=== PATIENT | male | born 1955 | race Caucasian/White ===

== ENCOUNTER → 2016-05-26 | Outpatient (CLI) | payer BC ==
--- NOTE | 2016-05-26 15:50 | NM ---
EXAMINATION: NM left ventriculography HISTORY: Cardiomyopathy COMPARISON: None TECHNIQUE: Images were obtained in the MOLDOVAN position following the administration of 21.8 mCi of Tech 99M labeled UltraTag. FINDINGS: There is good left and right ventricular contraction noted. Ejection fraction of the left ventricle measures 40%. IMPRESSION: Left ventricular ejection fraction of 40%.
== END | disposition home or self-care (01) ==
LOC: MW.NM 09:42
PROVIDERS: ATTEND Internal Medicine Cardiovascular Disease
DX: I42.9 Cardiomyopathy, unspecified (principal)
CPT/HCPCS: 78472; A9508

== ENCOUNTER → 2016-05-27 | Outpatient (CLI) | payer BC ==
[~2016-05-27] MED LIST: Gadobutrol 7.5 mMOL/7.5 ML SDV IVPUSH STA
--- NOTE | 2016-05-28 10:07 | MR ---
EXAMINATION: MRI of the brain with and without contrast. TECHNIQUE: Multiplanar and multisequence imaging of the brain without and following the administrati on of 7.5 mL of Gadavist. HISTORY: Hemorrhage. FINDINGS: Cerebral hemispheres and the deep nuclei are without hemorrhage, mass, or edema. 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 There is no abnormal diffusion restriction. No extraaxial collections or hemorrhage. Ventricular system is of normal size and configuration with out hydrocephalus. Brainstem and cerebellum are without hemorrhage, mass, edema, gliosis, enhanceme nt or atrophy. Carotid basilar artery flow voids are intact. The otomastoid airspaces are clear. No internal chuckie tory canal or cerebellopontine angle masses or enhancement. There is mucosal thickening within the Maxillary and sphenoid sinuses. There is opacification of several ethmoid air cells. Globes, optic nerves, orbital apices, optic chiasm, optic tracts, and visual cortices are unremarka ble. The pituitary and sella turcica are unremarkable. No meningeal enhancement. The craniocervical junction is unremarkable. No siderosis or evidence of vascular malformation. The calvarium is intact. IMPRESSION: 1. Developing encephalomalacia within the left occipital lobe from the previously described infarct. 2. No acute intracranial abnormalities identified. 3. Mild paranasal sinus disease.
== END ==
LOC: MW.MRI 15:39
PROVIDERS: ATTEND Psychiatry & Neurology Neuromuscular Medicine
DX: I61.9 Nontraumatic intracerebral hemorrhage, unspecified (principal); G93.89 Other specified disorders of brain; J34.9 Unspecified disorder of nose and nasal sinuses
CPT/HCPCS: 70553; A9585

== ENCOUNTER 2018-09-13 14:11 | Emergency (ER) | payer BC, MEDICARE ==
[2018-09-13] MEDS ORDERED: Sodium Chloride 0.9% 1,000 ML IV ONE (14:29)
[2018-09-13] MEDS ORDERED: Pantoprazole 40 MG Vial IVPUSH ONE (14:39)
[2018-09-13] MEDS ORDERED: Sodium Chloride 0.9% 1,000 ML IV SCH (14:45)
[2018-09-13] MEDS ORDERED: Sodium Chloride 0.9% 10 ML SDV IV ONE (14:45)
[2018-09-13 15:13] LABS: CARBON DIOXIDE,CO2 26.7 mmol/L (21.0-32.0); CHLORIDE,CL 103 mmol/L (98-107); GLUCOSE RANDOM 172 mg/dL (74-106); POTASSIUM,K 4.4 mmol/L (3.5-5.1); SODIUM,NA 134 mmol/L (136-148)
[2018-09-13 15:14] LABS: BLOOD UREA NITROGEN,BUN 36 mg/dL (7.0-18.0)
--- NOTE | 2018-09-13 15:24 | EDM.PDOC ---
ED HPI GENERAL MEDICAL PROBLEM - General Chief Complaint: Cardiovascular Problem Stated Complaint: POSS HEART ATTACK Time Seen by Provider: 09/13/18 15:22 Source of Information: Reports: Patient - History of Present Illness INITIAL COMMENTS - FREE TEXT/NARRATIVE: HISTORY AND PHYSICAL: History of present illness: [ Patient presents with history of chronic alcoholism and hypotension hemoglobin is 9.0 otherwise no acute distress he does state he of dark stools no fever nausea vomiting chills sweats no chest pain shortness breath headache dizziness palpitation no urine symptoms] Review of systems: As per history of present illness and below otherwise all systems reviewed and negative. Past medical history: As per history of present illness and as reviewed below otherwise noncontributory. Surgical history: As per history of present illness and as reviewed below otherwise noncontributory. Social history: No reported history of drug or alcohol abuse. Family history: As per history of present illness and as reviewed below otherwise noncontributory. Physical exam: HEENT: Atraumatic, normocephalic, pupils reactive, negative for conjunctival pallor or scleral icterus, mucous membranes moist, throat clear, neck supple, nontender, trachea midline. Lungs: Clear to auscultation, breath sounds equal bilaterally, chest nontender. Heart: S1S2, regular, negative for clicks, rubs, or JVD. Abdomen: Soft, nondistended, nontender. Negative for masses or hepatosplenomegaly. Negative for costovertebral tenderness. Pelvis: Stable nontender. Genitourinary: Deferred. Rectal: Deferred. Extremities: Atraumatic, negative for cords or calf pain. Neurovascular unremarkable. Neuro: Awake, alert, oriented. Cranial nerves II through XII unremarkable. Cerebellum unremarkable. Motor and sensory unremarkable throughout. Exam nonfocal. Diagnostics: [TBC CMP UA troponin guaiac EKG Chest 1 view] Therapeutics: [Way Proton X] Impression: [Hypotension Anemia Chronic history of baseline] Definitive disposition and diagnosis as appropriate pending reevaluation and review of above. Treatments SERVICE ORDER DISPATCHER: Reports: IV/IO, Oxygen, Other (see below) Other Treatments SERVICE ORDER DISPATCHER: IVF - Related Data Allergies Allergy/AdvReac Type Severity Reaction Status Date / Time codeine Allergy Swelling Verified 09/13/18 14:27 Penicillins Allergy Anaphylactic Verified 07/06/15 20:27 Shock Home Meds: Home Meds Clopidogrel [Plavix] 1 tab PO DAILY 07/06/15 [History] Lisinopril [Zestril] 1 tab PO DAILY 07/06/15 [History] amLODIPine [Norvasc] 5 mg PO DAILY 07/06/15 [History] Carvedilol 3.125 mg PO DAILY 09/13/18 [History] Multivitamin [Daily Multiple Vitamin] 1 each PO DAILY 09/13/18 [History] Nitroglycerin 0.4 mg SL ASDIRECTED 09/13/18 [History] atorvaSTATin Calcium [Atorvastatin Calcium] 40 mg PO DAILY 09/13/18 [History] Past Medical History HEENT History: Reports: None Cardiovascular History: Reports: High Cholesterol, Hypertension Other Cardiovascular History: femoral bypass surgery 5 years ago. heart blockage Respiratory History: Reports: COPD Gastrointestinal History: Reports: None Genitourinary History: Reports: None Musculoskeletal History: Reports: None Neurological History: Reports: None Psychiatric History: Reports: None Endocrine/Metabolic History: Reports: None Hematologic History: Reports: None Immunologic History: Reports: None Dermatologic History: Reports: None - Infectious Disease History Infectious Disease History: Reports: Measles, Mumps - Past Surgical History Head Surgeries/Procedures: Reports: None GI Surgical History: Reports: Other (See Below) Social & Family History - Family History Family Medical History: Unobtainable - Tobacco Use Smoking Status *Q: Current Every Day Smoker Years of Tobacco use: 45 Packs/Tins Daily: 2 - Recreational Drug Use Recreational Drug Use: Yes Drug Use in Last 12 Months: Yes Recreational Drug Type: Reports: Marijuana/Hashish Recreational Drug Use Frequency: Daily ED ROS GENERAL - Review of Systems Review Of Systems: See Below ED EXAM, GENERAL - Physical Exam Exam: See Below Course - Vital Signs Last Recorded V/S: Last Vital Signs Temp 96.0 F 09/13/18 14:22 Pulse 87 09/13/18 15:07 Resp 18 09/13/18 15:07 BP 101/57 L 09/13/18 15:07 Pulse Ox 96 09/13/18 15:07 - Orders/Labs/Meds Orders: Active Orders 24 hr Category Date Time Status EKG Documentation Completion [RC] AM Care 09/13/18 14:30 Active Chest 1V Frontal [CR] Stat Exams 09/13/18 14:30 Ordered CULTURE BLOOD [BC] Stat Lab 09/13/18 14:36 Received CULTURE BLOOD [BC] Stat Lab 09/13/18 14:54 Received ETHANOL BLOOD MEDICAL [CHEM] Stat Lab 09/13/18 14:28 Received Guaiac [OCCULT BLOOD DIAGNOSTIC] [OP] Stat Lab 09/13/18 15:13 Ordered TYPE AND SCREEN [BBK] Stat Lab 09/13/18 14:39 Ordered Sodium Chloride 0.9% [Normal Saline] 1,000 ml Med 09/13/18 14:29 Active IV STAT Sodium Chloride 0.9% [Normal Saline] 1,000 ml Med 09/13/18 14:45 Active IV STAT Blood Culture x2 Reflex Set [OM.PC] Stat Oth 09/13/18 14:30 Ordered Medication Orders Sodium Chloride (Normal Saline) 1,000 mls @ 999 mls/hr IV STAT ONE Stop: 09/13/18 15:29 Last Admin: 09/13/18 14:37 Dose: 999 mls/hr Sodium Chloride (Normal Saline) 1,000 mls @ 125 mls/hr IV STAT ANGIE Last Admin: 09/13/18 14:52 Dose: 125 mls/hr Labs: Laboratory Tests 09/13/18 09/13/18 09/13/18 Range/Units 14:28 14:28 14:28 WBC 11.30 H (4.0-11.0) K/uL RBC 2.80 L (4.50-5.90) M/uL Hgb 9.1 L (13.0-17.0) g/dL Hct 25.9 L (38.0-50.0) % MCV 92.5 (80.0-98.0) fL MCH 32.5 H (27.0-32.0) pg MCHC 35.1 (31.0-37.0) g/dL RDW Std Deviation 45.0 (28.0-62.0) fl RDW Coeff of Zhen 13 (11.0-15.0) % Plt Count 209 (150-400) K/uL MPV 10.60 (7.40-12.00) fL Neut % (Auto) 68.8 (48.0-80.0) % Lymph % (Auto) 22.5 (16.0-40.0) % Mckenzie % (Auto) 6.8 (0.0-15.0) % Eos % (Auto) 1.2 (0.0-7.0) % Baso % (Auto) 0.7 (0.0-1.5) % Neut # (Auto) 7.8 H (1.4-5.7) K/uL Lymph # (Auto) 2.5 H (0.6-2.4) K/uL Mckenzie # (Auto) 0.8 (0.0-0.8) K/uL Eos # (Auto) 0.1 (0.0-0.7) K/uL Baso # (Auto) 0.1 (0.0-0.1) K/uL Nucleated RBC % 0.0 /100WBC Nucleated RBCs # 0 K/uL INR 1.02 Sodium 134 L (136-148) mmol/L Potassium 4.4 (3.5-5.1) mmol/L Chloride 103 (98-107) mmol/L Carbon Dioxide 26.7 (21.0-32.0) mmol/L BUN 36 H (7.0-18.0) mg/dL Creatinine 1.4 H (0.8-1.3) mg/dL Est Cr Clr Drug Dosing 47.88 mL/min Estimated GFR (MDRD) 51.0 ml/min Glucose 172 H (74-106) mg/dL Calcium 9.9 (8.5-10.1) mg/dL Total Bilirubin 0.5 (0.2-1.0) mg/dL AST 18 (15-37) IU/L ALT 28 (14-63) IU/L Alkaline Phosphatase 70 (46-116) U/L Creatine Kinase 21 L (26-308) U/L Troponin I < 0.050 (0.000-0.056) ng/mL Total Protein 5.7 L (6.4-8.2) g/dL Albumin 3.1 L (3.4-5.0) g/dL Globulin 2.6 (2.6-4.0) g/dL Albumin/Globulin Ratio 1.2 (0.9-1.6) Meds: Medications Generic Name Dose Route Start Last Admin Trade Name Freq PRN Reason Stop Dose Admin Sodium Chloride 1,000 mls @ 999 mls/hr 09/13/18 14:29 09/13/18 14:37 Normal Saline IV 09/13/18 15:29 999 mls/hr STAT ONE Administration Sodium Chloride 1,000 mls @ 125 mls/hr 09/13/18 14:45 09/13/18 14:52 Normal Saline IV 125 mls/hr STAT ANGIE Administration Discontinued Medications Generic Name Dose Route Start Last Admin Trade Name Kashmirq PRN Reason Stop Dose Admin Pantoprazole Sodium 80 mg 09/13/18 14:39 09/13/18 14:52 Protonix Iv IVPUSH 09/13/18 14:40 80 mg .BOLUS ONE Administration Sodium Chloride 20 ml 09/13/18 14:45 09/13/18 14:52 Normal Saline IV 09/13/18 14:46 20 ml ONETIME ONE Administration Departure - Departure Time of Disposition: 15:23 Disposition: Refer to Observation Condition: Poor Clinical Impression: Hypotension, Anemia Referrals: Nilton David MD [Primary Care Provider] - - My Orders Last 24 Hours: My Active Orders 09/13/18 14:28 ETHANOL BLOOD MEDICAL [CHEM] Stat 09/13/18 14:29 Sodium Chloride 0.9% [Normal Saline] 1,000 ml IV STAT 09/13/18 14:30 EKG Documentation Completion [RC] AM Chest 1V Frontal [CR] Stat Blood Culture x2 Reflex Set [OM.PC] Stat 09/13/18 14:36 CULTURE BLOOD [BC] Stat 09/13/18 14:39 TYPE AND SCREEN [BBK] Stat 09/13/18 14:45 Sodium Chloride 0.9% [Normal Saline] 1,000 ml IV STAT 09/13/18 14:54 CULTURE BLOOD [BC] Stat 09/13/18 15:13 Guaiac [OCCULT BLOOD DIAGNOSTIC] [OP] Stat - Assessment/Plan Last 24 Hours: My Active Orders 09/13/18 14:28 ETHANOL BLOOD MEDICAL [CHEM] Stat 09/13/18 14:29 Sodium Chloride 0.9% [Normal Saline] 1,000 ml IV STAT 09/13/18 14:30 EKG Documentation Completion [RC] AM Chest 1V Frontal [CR] Stat Blood Culture x2 Reflex Set [OM.PC] Stat 09/13/18 14:36 CULTURE BLOOD [BC] Stat 09/13/18 14:39 TYPE AND SCREEN [BBK] Stat 09/13/18 14:45 Sodium Chloride 0.9% [Normal Saline] 1,000 ml IV STAT 09/13/18 14:54 CULTURE BLOOD [BC] Stat 09/13/18 15:13 Guaiac [OCCULT BLOOD DIAGNOSTIC] [OP] Stat
--- NOTE | 2018-09-13 16:06 | CR ---
INDICATION: Shortness of breath COMPARISON: 06/25/2017 FINDINGS: An AP portable erect film of the chest is obtained at 1535 hours. The rounded density in the left superior perihilar lung has resolved, leaving a cavitary region, consistent with resolution of an infected bulla. Again seen is a calcified granuloma in the left mid-upper lateral lung. The rest of the chest remains clear. The heart remains normal in size. The mediastinum is normal in appearance. The osseous structures are normal in appearance for the patient`s age. IMPRESSION: No active disease seen in the chest. Resolution of previously seen probable infected bulla in the left superior perihilar lung. Dictated by Sebastián Grove MD @ Sep 13 2018 4:02PM Signed by Dr. Sebastián Grove @ Sep 13 2018 4:05PM
[2018-09-13 16:25] VITALS: BP 106/60; PULSE 75
--- NOTE | 2018-09-13 16:41 | PCM.HP ---
<Francoise Borden M - Last Filed: 09/13/18 16:36> H&P History of Present Illness - General Date of Service: 09/13/18 Admit Problem/Dx: Admission Diagnosis/Problem Admission Diagnosis/Problem Anemia Source of Information: Patient, Family - History of Present Illness Initial Comments - Free Text/Narative: This 63 year old male with pmh of fem fem bypass bilaterally, CVA, alcohol use, and tobacco use presented to the ED via EMS with complaints of extreme dizziness and near syncope this morning. he reports these symptoms have been occurring over the last 3 days but worsening today significantly. Along with this he reports coffee ground emesis yesterday along with three days of black tarry stools, with the last stool being just before coming to the ED today. He reports he is taking ASA and Plavix for his arterial disease. He drinks a 12 pack every couple days, his last drink was last Wednesday. Denies withdrawal symptoms. In ED leukocytosis noted 11,300, hgb 9.1 INR 1.02. BUN 36, Cr 1.4 trop negative ETOH negative. He was given Protonix and NS bolus. BPs have have 80/50s. Rectal exam done per tn, black tarry stool noted around anal opening, no mariluz blood. Hemoccult positive. - Related Data Allergies/Adverse Reactions: Allergies Allergy/AdvReac Type Severity Reaction Status Date / Time codeine Allergy Swelling Verified 09/13/18 14:27 Penicillins Allergy Anaphylactic Verified 07/06/15 20:27 Shock Home Medications: Home Meds Clopidogrel [Plavix] 1 tab PO DAILY 07/06/15 [History] Lisinopril [Zestril] 1 tab PO DAILY 07/06/15 [History] amLODIPine [Norvasc] 5 mg PO DAILY 07/06/15 [History] Carvedilol 3.125 mg PO DAILY 09/13/18 [History] Multivitamin [Daily Multiple Vitamin] 1 each PO DAILY 09/13/18 [History] Nitroglycerin 0.4 mg SL ASDIRECTED 09/13/18 [History] atorvaSTATin Calcium [Atorvastatin Calcium] 40 mg PO DAILY 09/13/18 [History] Past Medical History HEENT History: Reports: None Cardiovascular History: Reports: High Cholesterol, Hypertension Other Cardiovascular History: femoral bypass surgery 5 years ago. heart blockage Respiratory History: Reports: COPD Gastrointestinal History: Reports: None. Denies: GERD, GI Bleed Genitourinary History: Reports: None Musculoskeletal History: Reports: None Neurological History: Reports: None Psychiatric History: Reports: None Endocrine/Metabolic History: Reports: None Hematologic History: Reports: None Immunologic History: Reports: None Dermatologic History: Reports: None - Infectious Disease History Infectious Disease History: Reports: Measles, Mumps - Past Surgical History Head Surgeries/Procedures: Reports: None GI Surgical History: Reports: Other (See Below) Social & Family History - Family History Family Medical History: Unobtainable - Tobacco Use Smoking Status *Q: Current Every Day Smoker Years of Tobacco use: 45 Packs/Tins Daily: 2 - Alcohol Use Alcohol Use History: Yes Alcohol Use Frequency: Weekly - Recreational Drug Use Recreational Drug Use: Yes Drug Use in Last 12 Months: Yes Recreational Drug Type: Reports: Marijuana/Hashish Recreational Drug Use Frequency: Daily H&P Review of Systems - Review of Systems: Review Of Systems: See Below HEENT: Reports: Vertigo Pulmonary: Reports: Shortness of Breath (at baseline) Cardiovascular: Reports: Lightheadedness, Syncope (near syncopal). Denies: Chest Pain, Edema Gastrointestinal: Reports: Black Stool, Vomiting, Other (coffee ground emesis) Genitourinary: Reports: No Symptoms. Denies: Dysuria, Frequency, Burning Musculoskeletal: Reports: No Symptoms Skin: Reports: No Symptoms Psychiatric: Reports: No Symptoms Neurological: Reports: No Symptoms Hematologic/Lymphatic: Reports: No Symptoms Immunologic: Reports: No Symptoms Exam - Exam Exam: See Below - Vital Signs Vital Signs: Last Vital Signs Temp 96.0 F 09/13/18 14:22 Pulse 75 09/13/18 16:24 Resp 16 09/13/18 15:29 BP 106/60 09/13/18 16:24 Pulse Ox 99 09/13/18 16:24 Weight: 63.503 kg - Exam General: Alert, Oriented, Cooperative, Other (diaphoretic and pale in appearance ) HEENT: No: Mucosa Moist & Bennett (pale mucous membranes) Neck: Supple Lungs: Clear to Auscultation, Normal Respiratory Effort Cardiovascular: Regular Rate, Regular Rhythm. No: Systolic Murmur GI/Abdominal Exam: Normal Bowel Sounds, Soft, Non-Tender Rectal (Males) Exam: Normal Rectal Tone, Black Stool, Heme + Stool, Hemorrhoids (non bleeding). No: Mass, Tenderness Extremities: Normal Inspection, Normal Range of Motion, Non-Tender, No Pedal Edema Neuro Extensive - Mental Status: Alert, Oriented x3 Neuro Extensive - Motor, Sensory, Reflexes: CN II-XII Intact Psychiatric: Alert, Normal Affect, Normal Mood - Patient Data Lab Results Last 24 hrs: Laboratory Results - last 24 hr 09/13/18 09/13/18 09/13/18 Range/Units 14:28 14:28 14:28 WBC 11.30 H (4.0-11.0) K/uL RBC 2.80 L (4.50-5.90) M/uL Hgb 9.1 L (13.0-17.0) g/dL Hct 25.9 L (38.0-50.0) % MCV 92.5 (80.0-98.0) fL MCH 32.5 H (27.0-32.0) pg MCHC 35.1 (31.0-37.0) g/dL RDW Std Deviation 45.0 (28.0-62.0) fl RDW Coeff of Zhen 13 (11.0-15.0) % Plt Count 209 (150-400) K/uL MPV 10.60 (7.40-12.00) fL Neut % (Auto) 68.8 (48.0-80.0) % Lymph % (Auto) 22.5 (16.0-40.0) % Tripp % (Auto) 6.8 (0.0-15.0) % Eos % (Auto) 1.2 (0.0-7.0) % Baso % (Auto) 0.7 (0.0-1.5) % Neut # (Auto) 7.8 H (1.4-5.7) K/uL Lymph # (Auto) 2.5 H (0.6-2.4) K/uL Tripp # (Auto) 0.8 (0.0-0.8) K/uL Eos # (Auto) 0.1 (0.0-0.7) K/uL Baso # (Auto) 0.1 (0.0-0.1) K/uL Nucleated RBC % 0.0 /100WBC Nucleated RBCs # 0 K/uL INR 1.02 Sodium 134 L (136-148) mmol/L Potassium 4.4 (3.5-5.1) mmol/L Chloride 103 (98-107) mmol/L Carbon Dioxide 26.7 (21.0-32.0) mmol/L BUN 36 H (7.0-18.0) mg/dL Creatinine 1.4 H (0.8-1.3) mg/dL Est Cr Clr Drug Dosing 47.88 mL/min Estimated GFR (MDRD) 51.0 ml/min Glucose 172 H (74-106) mg/dL Calcium 9.9 (8.5-10.1) mg/dL Total Bilirubin 0.5 (0.2-1.0) mg/dL AST 18 (15-37) IU/L ALT 28 (14-63) IU/L Alkaline Phosphatase 70 (46-116) U/L Creatine Kinase 21 L (26-308) U/L Troponin I < 0.050 (0.000-0.056) ng/mL Total Protein 5.7 L (6.4-8.2) g/dL Albumin 3.1 L (3.4-5.0) g/dL Globulin 2.6 (2.6-4.0) g/dL Albumin/Globulin Ratio 1.2 (0.9-1.6) Ethyl Alcohol mg/dL Blood Type Antibody Screen Crossmatch 09/13/18 09/13/18 Range/Units 14:28 15:20 WBC (4.0-11.0) K/uL RBC (4.50-5.90) M/uL Hgb (13.0-17.0) g/dL Hct (38.0-50.0) % MCV (80.0-98.0) fL MCH (27.0-32.0) pg MCHC (31.0-37.0) g/dL RDW Std Deviation (28.0-62.0) fl RDW Coeff of Zhen (11.0-15.0) % Plt Count (150-400) K/uL MPV (7.40-12.00) fL Neut % (Auto) (48.0-80.0) % Lymph % (Auto) (16.0-40.0) % Tripp % (Auto) (0.0-15.0) % Eos % (Auto) (0.0-7.0) % Baso % (Auto) (0.0-1.5) % Neut # (Auto) (1.4-5.7) K/uL Lymph # (Auto) (0.6-2.4) K/uL Tripp # (Auto) (0.0-0.8) K/uL Eos # (Auto) (0.0-0.7) K/uL Baso # (Auto) (0.0-0.1) K/uL Nucleated RBC % /100WBC Nucleated RBCs # K/uL INR Sodium (136-148) mmol/L Potassium (3.5-5.1) mmol/L Chloride (98-107) mmol/L Carbon Dioxide (21.0-32.0) mmol/L BUN (7.0-18.0) mg/dL Creatinine (0.8-1.3) mg/dL Est Cr Clr Drug Dosing mL/min Estimated GFR (MDRD) ml/min Glucose (74-106) mg/dL Calcium (8.5-10.1) mg/dL Total Bilirubin (0.2-1.0) mg/dL AST (15-37) IU/L ALT (14-63) IU/L Alkaline Phosphatase (46-116) U/L Creatine Kinase (26-308) U/L Troponin I (0.000-0.056) ng/mL Total Protein (6.4-8.2) g/dL Albumin (3.4-5.0) g/dL Globulin (2.6-4.0) g/dL Albumin/Globulin Ratio (0.9-1.6) Ethyl Alcohol < 3.0 mg/dL Blood Type O POSITIVE Antibody Screen NEGATIVE Crossmatch See Detail Result Diagrams: 09/13/18 14:28 09/13/18 14:28 - Problem List (1) GI bleed SNOMED Code(s): 30326453 ICD Code: K92.2 - GASTROINTESTINAL HEMORRHAGE, UNSPECIFIED Status: Acute (2) Hemorrhagic shock SNOMED Code(s): 343012 ICD Code: R57.8 - OTHER SHOCK Status: Acute Problem List Initiated/Reviewed/Updated: Yes Orders Last 24hrs: Active Orders 24 hr Category Date Time Status Admission Status [Patient Status] [ADT] Stat ADT 09/13/18 15:24 Active EKG Documentation Completion [RC] AM Care 09/13/18 14:30 Active CULTURE BLOOD [BC] Stat Lab 09/13/18 14:36 Received CULTURE BLOOD [BC] Stat Lab 09/13/18 14:54 Received RED BLOOD CELLS LP [BBK] Stat Lab 09/13/18 15:20 Results TYPE AND SCREEN [BBK] Stat Lab 09/13/18 15:20 Results TYPE AND SCREEN [BBK] Stat Lab 09/13/18 16:22 Ordered Sodium Chloride 0.9% [Normal Saline] 1,000 ml Med 09/13/18 14:45 Active IV STAT Blood Culture x2 Reflex Set [OM.PC] Stat Oth 09/13/18 14:30 Ordered Transfuse Red Blood Cells [COMM] Stat Oth 09/13/18 16:21 Ordered Medication Orders Sodium Chloride (Normal Saline) 1,000 mls @ 125 mls/hr IV STAT ANGIE Last Infusion: 09/13/18 15:54 Dose: 150 mls/hr Admin: 09/13/18 14:52 Dose: 125 mls/hr Assessment/Plan Comment:: I assessed and evaluate patient in ED prior to admission to Med/Surg. Patient appeared diaphoretic and pale. I spoke with family and patient regarding potential for transfer due to GI bleeding concern. Spoke with Dr Spencer, hospital team to transfer. Hemoccult obtain at this time to confirm bleeding. I spoke with Dr Aguila regarding reasons for transfer, he agreed and arrived to assess patient as well. I spoke with Dr Najera in [place] ED regarding need for urgent transfer. She has accepted him for transfer. We will start 1 unit O negative blood emergently prior to transfer. He will be transferred via [facility] due to emergent nature for further evaluation for GI bleed causing hemorrhagic shock along with his medical co morbidities. He will be transferred from ED to [facility]. Patient and , who is at bedside are in agreement with treatment plan. <Adolfo Aguila M - Last Filed: 09/13/18 18:41> H&P History of Present Illness - General Admit Problem/Dx: Admission Diagnosis/Problem Admission Diagnosis/Problem Anemia I have discussed the case with Francoise Borden CNP and agree with her assessment and plan. The patient also had exhibited mariluz melena and was Hemoccult positive on testing in the emergency department. The patient also had a hemoglobin at 9.1 g/dL along with elevation of his BUN in an excessive ratio of his creatinine. The patient has a stroke history and he also had been taken aspirin and Plavix. I believe the patient's hypotension, considering all the above, is secondary to hemorrhagic shock. The patient also at this point is hemodynamically unstable and also recommended that he have one unit of packed red blood cells transfused as he has been transported by helicopter to tertiary care center. The patient has not been accepted for admission here secondary to these urgent findings. Exam - Vital Signs Vital Signs: Last Vital Signs Temp 35.6 C 09/13/18 14:22 Pulse 75 09/13/18 16:24 Resp 16 09/13/18 15:29 BP 106/60 09/13/18 16:24 Pulse Ox 99 09/13/18 16:24 - Patient Data Lab Results Last 24 hrs: Laboratory Results - last 24 hr 09/13/18 09/13/18 09/13/18 Range/Units 14:28 14:28 14:28 WBC 11.30 H (4.0-11.0) K/uL RBC 2.80 L (4.50-5.90) M/uL Hgb 9.1 L (13.0-17.0) g/dL Hct 25.9 L (38.0-50.0) % MCV 92.5 (80.0-98.0) fL MCH 32.5 H (27.0-32.0) pg MCHC 35.1 (31.0-37.0) g/dL RDW Std Deviation 45.0 (28.0-62.0) fl RDW Coeff of Zhen 13 (11.0-15.0) % Plt Count 209 (150-400) K/uL MPV 10.60 (7.40-12.00) fL Neut % (Auto) 68.8 (48.0-80.0) % Lymph % (Auto) 22.5 (16.0-40.0) % Tripp % (Auto) 6.8 (0.0-15.0) % Eos % (Auto) 1.2 (0.0-7.0) % Baso % (Auto) 0.7 (0.0-1.5) % Neut # (Auto) 7.8 H (1.4-5.7) K/uL Lymph # (Auto) 2.5 H (0.6-2.4) K/uL Tripp # (Auto) 0.8 (0.0-0.8) K/uL Eos # (Auto) 0.1 (0.0-0.7) K/uL Baso # (Auto) 0.1 (0.0-0.1) K/uL Nucleated RBC % 0.0 /100WBC Nucleated RBCs # 0 K/uL INR 1.02 Sodium 134 L (136-148) mmol/L Potassium 4.4 (3.5-5.1) mmol/L Chloride 103 (98-107) mmol/L Carbon Dioxide 26.7 (21.0-32.0) mmol/L BUN 36 H (7.0-18.0) mg/dL Creatinine 1.4 H (0.8-1.3) mg/dL Est Cr Clr Drug Dosing 47.88 mL/min Estimated GFR (MDRD) 51.0 ml/min Glucose 172 H (74-106) mg/dL Calcium 9.9 (8.5-10.1) mg/dL Total Bilirubin 0.5 (0.2-1.0) mg/dL AST 18 (15-37) IU/L ALT 28 (14-63) IU/L Alkaline Phosphatase 70 (46-116) U/L Creatine Kinase 21 L (26-308) U/L Troponin I < 0.050 (0.000-0.056) ng/mL Total Protein 5.7 L (6.4-8.2) g/dL Albumin 3.1 L (3.4-5.0) g/dL Globulin 2.6 (2.6-4.0) g/dL Albumin/Globulin Ratio 1.2 (0.9-1.6) Ethyl Alcohol mg/dL Blood Type Antibody Screen Crossmatch 09/13/18 09/13/18 Range/Units 14:28 15:20 WBC (4.0-11.0) K/uL RBC (4.50-5.90) M/uL Hgb (13.0-17.0) g/dL Hct (38.0-50.0) % MCV (80.0-98.0) fL MCH (27.0-32.0) pg MCHC (31.0-37.0) g/dL RDW Std Deviation (28.0-62.0) fl RDW Coeff of Zhen (11.0-15.0) % Plt Count (150-400) K/uL MPV (7.40-12.00) fL Neut % (Auto) (48.0-80.0) % Lymph % (Auto) (16.0-40.0) % Tripp % (Auto) (0.0-15.0) % Eos % (Auto) (0.0-7.0) % Baso % (Auto) (0.0-1.5) % Neut # (Auto) (1.4-5.7) K/uL Lymph # (Auto) (0.6-2.4) K/uL Tripp # (Auto) (0.0-0.8) K/uL Eos # (Auto) (0.0-0.7) K/uL Baso # (Auto) (0.0-0.1) K/uL Nucleated RBC % /100WBC Nucleated RBCs # K/uL INR Sodium (136-148) mmol/L Potassium (3.5-5.1) mmol/L Chloride (98-107) mmol/L Carbon Dioxide (21.0-32.0) mmol/L BUN (7.0-18.0) mg/dL Creatinine (0.8-1.3) mg/dL Est Cr Clr Drug Dosing mL/min Estimated GFR (MDRD) ml/min Glucose (74-106) mg/dL Calcium (8.5-10.1) mg/dL Total Bilirubin (0.2-1.0) mg/dL AST (15-37) IU/L ALT (14-63) IU/L Alkaline Phosphatase (46-116) U/L Creatine Kinase (26-308) U/L Troponin I (0.000-0.056) ng/mL Total Protein (6.4-8.2) g/dL Albumin (3.4-5.0) g/dL Globulin (2.6-4.0) g/dL Albumin/Globulin Ratio (0.9-1.6) Ethyl Alcohol < 3.0 mg/dL Blood Type O POSITIVE Antibody Screen NEGATIVE Crossmatch See Detail Result Diagrams: 09/13/18 14:28 09/13/18 14:28 Orders Last 24hrs: Active Orders 24 hr Category Date Time Status EKG Documentation Completion [RC] AM Care 09/13/18 14:30 Active CULTURE BLOOD [BC] Stat Lab 09/13/18 14:36 Received CULTURE BLOOD [BC] Stat Lab 09/13/18 14:54 Received RED BLOOD CELLS LP [BBK] Stat Lab 09/13/18 15:20 Results TYPE AND SCREEN [BBK] Stat Lab 09/13/18 15:20 Results Blood Culture x2 Reflex Set [OM.PC] Stat Oth 09/13/18 14:30 Ordered Transfuse Red Blood Cells [COMM] Stat Oth 09/13/18 16:21 Ordered
== END 2018-09-13 17:01 ==
LOC: MW.ED 14:11
DX: I95.9 Hypotension, unspecified (principal); D64.9 Anemia, unspecified; I10 Essential (primary) hypertension; E78.00 Pure hypercholesterolemia, unspecified; J44.9 Chronic obstructive pulmonary disease, unspecified; F17.210 Nicotine dependence, cigarettes, uncomplicated; Z88.5 Allergy status to narcotic agent; Z88.0 Allergy status to penicillin; Z79.899 Other long term (current) drug therapy
CPT/HCPCS: 36415; 71045; 80053; 82550; 84484; 85025; 85610; 87040; 93005; 96360; 96361; 96374; 99285; C9113; G0480; J7040; J7050; P9016

== ENCOUNTER 2020-08-27 12:59 | Emergency (ER) | payer BC, MEDICARE ==
[2020-08-27] MEDS ORDERED: Sodium Chloride 0.9% 10 ML Syringe FLUSH PRN (13:07)
[2020-08-27] MEDS ORDERED: Ondansetron 4 MG/2 ML SDV IVPUSH ONE (13:07)
[2020-08-27] MEDS ORDERED: Sodium Chloride 0.9% 2.5 ML Syringe FLUSH PRN (13:07)
[2020-08-27] MEDS ORDERED: Sodium Chloride 0.9% 1,000 ML IV ONE (13:09)
--- NOTE | 2020-08-27 13:11 | EDM.PDOC ---
ED HPI GENERAL MEDICAL PROBLEM - General Chief Complaint: General Stated Complaint: vomiting/black tarry stools Time Seen by Provider: 08/27/20 13:07 - History of Present Illness INITIAL COMMENTS - FREE TEXT/NARRATIVE: History of present illness: [] Patient has black stool for 2 days. Patient has nausea and vomiting for [address] heaves. He is never had any black or coffee-ground material. In the past he has hemorrhaged from the GI tract and been transfused. An upper GI and lower GI endoscopy were done in my not and they did not find any source of the bleeding. He is on clopidogrel and baby aspirin. He does not have a history of atrial fibrillation according to the . Review of systems: As per history of present illness and below otherwise all systems reviewed and negative. Past medical history: As per history of present illness and as reviewed below otherwise noncontributory. Surgical history: As per history of present illness and as reviewed below otherwise noncontributory. Social history: No reported history of drug or alcohol abuse. Family history: As per history of present illness and as reviewed below otherwise noncontributory. Physical exam: Constitutional -extremely thin and very pale. HEENT - normocephalic, no evidence of trauma - external nose and mouth normal - no mass in neck and no JVD - mucosae moist EYES - full EOM, PERRL, no icterus - no evidence of inflammation, injection, or drainage Respiratory - no respiratory distress, equal bilateral expansion, lungs clear to auscultation and no abnormal lung sounds Cardiovascular - Regular Rhythm with S1 and S2 appreciated and no murmur, gallop or rub. GI - abdomen soft without distension or organomegaly - normal bowel sounds - no guard or rebound Musculoskeletal no gross deformity of long bones or joints - no tenderness, swelling or edema Neurologic - Alert and oriented times four - CN II-XII grossly intact - motor sensory and coordination symmetrically normal Psychiatric - appropriate mood and affect with normal thought content Hematologic - No petechiae or purpura - mucosa appropriate color and sclera not pale - normal nail bed color and refill Integument - no rash or evidence of trauma - normal turgor Diagnostics: [] Therapeutics: [] Impression: [] Plan: [] Definitive disposition and diagnosis as appropriate pending reevaluation and review of above. - Related Data Allergies Allergy/AdvReac Type Severity Reaction Status Date / Time codeine Allergy Swelling Verified 08/27/20 13:14 Penicillins Allergy Anaphylactic Verified 08/27/20 13:14 Shock Home Meds: Home Meds Clopidogrel [Plavix] 75 mg PO DAILY 07/06/15 [History] amLODIPine [Norvasc] 5 mg PO DAILY 07/06/15 [History] lisinopriL [Zestril] 10 mg PO DAILY 07/06/15 [History] Nitroglycerin 0.4 mg SL ASDIRECTED 09/13/18 [History] atorvaSTATin Calcium [Atorvastatin Calcium] 40 mg PO DAILY 09/13/18 [History] carvediloL [Carvedilol] 3.125 mg PO BID 09/13/18 [History] Past Medical History HEENT History: Reports: None Cardiovascular History: Reports: High Cholesterol, Hypertension Other Cardiovascular History: femoral bypass surgery 5 years ago. heart blockage Respiratory History: Reports: COPD Gastrointestinal History: Reports: None. Denies: GERD, GI Bleed Genitourinary History: Reports: None Musculoskeletal History: Reports: None Neurological History: Reports: None Psychiatric History: Reports: None Endocrine/Metabolic History: Reports: None Hematologic History: Reports: None Immunologic History: Reports: None Dermatologic History: Reports: None - Infectious Disease History Infectious Disease History: Reports: Measles, Mumps - Past Surgical History Head Surgeries/Procedures: Reports: None GI Surgical History: Reports: Other (See Below) Social & Family History - Family History Family Medical History: Unobtainable ED ROS GENERAL - Review of Systems Review Of Systems: Comprehensive ROS is negative, except as noted in HPI. ED EXAM, GENERAL - Physical Exam Exam: See Below Free Text/Narrative:: My physical exam is in the HPI #1 Interpretation EKG Interpretation Comments: EKG done at 1:04 PM atrial fibrillation with a rapid ventricular rate heart rate 163 [place] 78 T wave inversions in the precordial lateral leads. Compared to 09/13/2018 the prior EKG was a sinus rhythm but the T wave inversions were already present. Impression atrial fibrillation with RVR Course - Vital Signs Text/Narrative:: After 1 L fluid the patient's heart rate was still in the 160s. Patient continues that way after 1800 mL. Lactate was over 6.0. A repeat lactate to be drawn after hydration but I will need to add a calcium channel bon to control his rate. Atrial fibrillation is new. Most likely this patient will need to be admitted to sort this out. He is already on clopidogrel and whether or not he needs a more intense effort to anticoagulate will be decided by the admitting physician. No obvious source of sepsis is found but the patient had an elevated white count and tachycardia and therefore he was treated as sepsis on arrival. 1645 hrs. I spoke with Dr. Britt and he agreed to admit this patient if the surgeons were willing to do an endoscopy if necessary. Prior to that he wanted a CT of the abdomen. We still looking for a cause of the white blood cell count. We also are looking for a cause of the melena. The patient has a rate that is relatively well controlled on diltiazem and he will will be placed on a drip but because of the titration of the drip the patient will go to the ICU. Due to a high probability of clinically significant, life threatening deterioration, the patient required my highest level of preparedness to intervene emergently and I personally spent this critical care time directly and personally managing the patient. This critical care time included obtaining a history; examining the patient; pulse oximetry; ordering and review of studies; arranging urgent treatment with development of a management plan; evaluation of patient's response to treatment; frequent reassessment; and, discussions with other providers. This critical care time was performed to assess and manage the high probability of imminent, life-threatening deterioration that could result in multi-organ failure. It was exclusive of separately billable procedures and treating other patients and teaching time. 40 minutes 1801 hrs. patient's heart rate is in the 140s and is being titrated on diltiazem. Dr. Pinon he felt like he is not stable to be managed here. Discussed with the emergency physician Dr Bowen at [facility]. He would accept the patient but they did not have a bed for this monitored patient. Discussed with Dr. Carlin at [facility] and he was accepted. Last Recorded V/S: Last Vital Signs Temp 37.4 C 08/27/20 13:23 Pulse 97 08/27/20 18:36 Resp 17 08/27/20 18:05 BP 103/55 L 08/27/20 18:05 Pulse Ox 96 08/27/20 18:05 - Orders/Labs/Meds Orders: Active Orders 24 hr Category Date Time Status EKG Documentation Completion [RC] AM Care 08/27/20 13:07 Active Abdomen Pelvis wo Cont [CT] Stat Exams 08/27/20 16:55 Taken CULTURE BLOOD [BC] Stat Lab 08/27/20 13:10 Received CULTURE BLOOD [BC] Stat Lab 08/27/20 13:33 Received CULTURE URINE [MREF] Stat Lab 08/27/20 17:20 Received Diltiazem [Cardizem] 100 mg Med 08/27/20 16:15 Active Sodium Chloride 0.9% [Normal Saline] 100 ml IV NOW Sodium Chloride 0.9% [Saline Flush] Med 08/27/20 13:07 Active 10 ml FLUSH ASDIRECTED PRN Sodium Chloride 0.9% [Saline Flush] Med 08/27/20 13:07 Active 2.5 ml FLUSH ASDIRECTED PRN Blood Culture x2 Reflex Set [OM.PC] Stat Oth 08/27/20 13:21 Ordered Saline Lock Insert [OM.PC] Stat Oth 08/27/20 13:07 Ordered Medication Orders Diltiazem HCl 100 mg/ Sodium (Chloride) 100 mls @ 10 mls/hr IV NOW [facility]; Protocol Last Titration: 08/27/20 19:02 Dose: 10 mg/hr, 10 mls/hr Documented by: Titration: 08/27/20 17:31 Dose: 15 mg/hr, 15 mls/hr Documented by: Admin: 08/27/20 16:31 Dose: 10 mg/hr, 10 mls/hr Documented by: ALIYAH Sodium Chloride (Sodium Chloride 0.9% 10 Ml Syringe) 10 ml FLUSH ASDIRECTED PRN PRN Reason: Keep Vein Open Last Admin: 08/27/20 13:19 Dose: 10 ml Documented by: ALIYAH Sodium Chloride (Sodium Chloride 0.9% 2.5 Ml Syringe) 2.5 ml FLUSH ASDIRECTED PRN PRN Reason: Keep Vein Open Last Admin: 08/27/20 13:19 Dose: 2.5 ml Documented by: ALIYAH Labs: Laboratory Tests 08/27/20 08/27/20 08/27/20 Range/Units 13:07 13:07 13:07 WBC 21.87 H (4.0-11.0) K/uL RBC 3.79 L (4.50-5.90) M/uL Hgb 12.3 L (13.0-17.0) g/dL Hct 35.6 L (38.0-50.0) % MCV 93.9 (80.0-98.0) fL MCH 32.5 H (27.0-32.0) pg MCHC 34.6 (31.0-37.0) g/dL RDW Std Deviation 47.5 (28.0-62.0) fl RDW Coeff of Zhen 14 (11.0-15.0) % Plt Count 289 (150-400) K/uL MPV 10.80 (7.40-12.00) fL Neut % (Auto) 81.3 H (48.0-80.0) % Lymph % (Auto) 11.9 L (16.0-40.0) % [place] % (Auto) 6.4 (0.0-15.0) % Eos % (Auto) 0.0 (0.0-7.0) % Baso % (Auto) 0.4 (0.0-1.5) % Neut # (Auto) 17.8 H (1.4-5.7) K/uL Lymph # (Auto) 2.6 H (0.6-2.4) K/uL [place] # (Auto) 1.4 H (0.0-0.8) K/uL Eos # (Auto) 0.0 (0.0-0.7) K/uL Baso # (Auto) 0.1 (0.0-0.1) K/uL Nucleated RBC % 0.0 /100WBC Nucleated RBCs # 0 K/uL INR 1.00 APTT (18.6-31.3) SEC Sodium 143 (136-148) mmol/L Potassium 4.7 (3.5-5.1) mmol/L Chloride 107 (98-107) mmol/L Carbon Dioxide 22.5 (21.0-32.0) mmol/L BUN 55 H (7.0-18.0) mg/dL Creatinine 1.9 H (0.8-1.3) mg/dL Est Cr Clr Drug Dosing 33.32 mL/min Estimated GFR (MDRD) 35.8 ml/min Glucose 187 H (74-106) mg/dL Lactic Acid (0.4-2.0) mmol/L Calcium 8.9 (8.5-10.1) mg/dL Magnesium 1.9 (1.8-2.4) mg/dL Total Bilirubin 0.5 (0.2-1.0) mg/dL AST 21 (15-37) IU/L ALT 19 (14-63) IU/L Alkaline Phosphatase 94 (46-116) U/L Troponin I < 0.050 (0.000-0.056) ng/mL Total Protein 6.7 (6.4-8.2) g/dL Albumin 3.3 L (3.4-5.0) g/dL Globulin 3.4 (2.6-4.0) g/dL Albumin/Globulin Ratio 1.0 (0.9-1.6) Lipase 65 L (73-393) U/L TSH 3rd Generation 9.00 H (0.36-3.74) uIU/mL Urine Color Urine Appearance Urine pH (5.0-8.0) Ur Specific [place] (1.001-1.035) Urine Protein (NEGATIVE) mg/dL Urine Glucose (UA) (NEGATIVE) mg/dL Urine Ketones (NEGATIVE) mg/dL Urine Occult Blood (NEGATIVE) Urine Nitrite (NEGATIVE) Urine Bilirubin (NEGATIVE) Urine Urobilinogen (<2.0) EU/dL Ur Leukocyte Esterase (NEGATIVE) SARS-CoV-2 RNA (NAILA) (NEGATIVE) Blood Type Antibody Screen 08/27/20 08/27/20 08/27/20 Range/Units 13:07 13:07 13:38 WBC (4.0-11.0) K/uL RBC (4.50-5.90) M/uL Hgb (13.0-17.0) g/dL Hct (38.0-50.0) % MCV (80.0-98.0) fL MCH (27.0-32.0) pg MCHC (31.0-37.0) g/dL RDW Std Deviation (28.0-62.0) fl RDW Coeff of Zhen (11.0-15.0) % Plt Count (150-400) K/uL MPV (7.40-12.00) fL Neut % (Auto) (48.0-80.0) % Lymph % (Auto) (16.0-40.0) % [place] % (Auto) (0.0-15.0) % Eos % (Auto) (0.0-7.0) % Baso % (Auto) (0.0-1.5) % Neut # (Auto) (1.4-5.7) K/uL Lymph # (Auto) (0.6-2.4) K/uL [place] # (Auto) (0.0-0.8) K/uL Eos # (Auto) (0.0-0.7) K/uL Baso # (Auto) (0.0-0.1) K/uL Nucleated RBC % /100WBC Nucleated RBCs # K/uL INR APTT 18.5 L (18.6-31.3) SEC Sodium (136-148) mmol/L Potassium (3.5-5.1) mmol/L Chloride (98-107) mmol/L Carbon Dioxide (21.0-32.0) mmol/L BUN (7.0-18.0) mg/dL Creatinine (0.8-1.3) mg/dL Est Cr Clr Drug Dosing mL/min Estimated GFR (MDRD) ml/min Glucose (74-106) mg/dL Lactic Acid 6.0 H* (0.4-2.0) mmol/L Calcium (8.5-10.1) mg/dL Magnesium (1.8-2.4) mg/dL Total Bilirubin (0.2-1.0) mg/dL AST (15-37) IU/L ALT (14-63) IU/L Alkaline Phosphatase (46-116) U/L Troponin I (0.000-0.056) ng/mL Total Protein (6.4-8.2) g/dL Albumin (3.4-5.0) g/dL Globulin (2.6-4.0) g/dL Albumin/Globulin Ratio (0.9-1.6) Lipase (73-393) U/L TSH 3rd Generation (0.36-3.74) uIU/mL Urine Color Urine Appearance Urine pH (5.0-8.0) Ur Specific [place] (1.001-1.035) Urine Protein (NEGATIVE) mg/dL Urine Glucose (UA) (NEGATIVE) mg/dL Urine Ketones (NEGATIVE) mg/dL Urine Occult Blood (NEGATIVE) Urine Nitrite (NEGATIVE) Urine Bilirubin (NEGATIVE) Urine Urobilinogen (<2.0) EU/dL Ur Leukocyte Esterase (NEGATIVE) SARS-CoV-2 RNA (NAILA) (NEGATIVE) Blood Type O POSITIVE Antibody Screen NEGATIVE 08/27/20 08/27/20 08/27/20 Range/Units 14:27 15:35 15:39 WBC (4.0-11.0) K/uL RBC (4.50-5.90) M/uL Hgb 9.5 L (13.0-17.0) g/dL Hct 27.0 L (38.0-50.0) % MCV (80.0-98.0) fL MCH (27.0-32.0) pg MCHC (31.0-37.0) g/dL RDW Std Deviation (28.0-62.0) fl RDW Coeff of Zhen (11.0-15.0) % Plt Count (150-400) K/uL MPV (7.40-12.00) fL Neut % (Auto) (48.0-80.0) % Lymph % (Auto) (16.0-40.0) % [place] % (Auto) (0.0-15.0) % Eos % (Auto) (0.0-7.0) % Baso % (Auto) (0.0-1.5) % Neut # (Auto) (1.4-5.7) K/uL Lymph # (Auto) (0.6-2.4) K/uL [place] # (Auto) (0.0-0.8) K/uL Eos # (Auto) (0.0-0.7) K/uL Baso # (Auto) (0.0-0.1) K/uL Nucleated RBC % /100WBC Nucleated RBCs # K/uL INR APTT (18.6-31.3) SEC Sodium (136-148) mmol/L Potassium (3.5-5.1) mmol/L Chloride (98-107) mmol/L Carbon Dioxide (21.0-32.0) mmol/L BUN (7.0-18.0) mg/dL Creatinine (0.8-1.3) mg/dL Est Cr Clr Drug Dosing mL/min Estimated GFR (MDRD) ml/min Glucose (74-106) mg/dL Lactic Acid 2.0 (0.4-2.0) mmol/L Calcium (8.5-10.1) mg/dL Magnesium (1.8-2.4) mg/dL Total Bilirubin (0.2-1.0) mg/dL AST (15-37) IU/L ALT (14-63) IU/L Alkaline Phosphatase (46-116) U/L Troponin I (0.000-0.056) ng/mL Total Protein (6.4-8.2) g/dL Albumin (3.4-5.0) g/dL Globulin (2.6-4.0) g/dL Albumin/Globulin Ratio (0.9-1.6) Lipase (73-393) U/L TSH 3rd Generation (0.36-3.74) uIU/mL Urine Color Urine Appearance Urine pH (5.0-8.0) Ur Specific [place] (1.001-1.035) Urine Protein (NEGATIVE) mg/dL Urine Glucose (UA) (NEGATIVE) mg/dL Urine Ketones (NEGATIVE) mg/dL Urine Occult Blood (NEGATIVE) Urine Nitrite (NEGATIVE) Urine Bilirubin (NEGATIVE) Urine Urobilinogen (<2.0) EU/dL Ur Leukocyte Esterase (NEGATIVE) SARS-CoV-2 RNA (NAILA) NEGATIVE (NEGATIVE) Blood Type Antibody Screen 08/27/20 08/27/20 Range/Units 17:20 18:05 WBC (4.0-11.0) K/uL RBC (4.50-5.90) M/uL Hgb (13.0-17.0) g/dL Hct (38.0-50.0) % MCV (80.0-98.0) fL MCH (27.0-32.0) pg MCHC (31.0-37.0) g/dL RDW Std Deviation (28.0-62.0) fl RDW Coeff of Zhen (11.0-15.0) % Plt Count (150-400) K/uL MPV (7.40-12.00) fL Neut % (Auto) (48.0-80.0) % Lymph % (Auto) (16.0-40.0) % [place] % (Auto) (0.0-15.0) % Eos % (Auto) (0.0-7.0) % Baso % (Auto) (0.0-1.5) % Neut # (Auto) (1.4-5.7) K/uL Lymph # (Auto) (0.6-2.4) K/uL [place] # (Auto) (0.0-0.8) K/uL Eos # (Auto) (0.0-0.7) K/uL Baso # (Auto) (0.0-0.1) K/uL Nucleated RBC % /100WBC Nucleated RBCs # K/uL INR APTT (18.6-31.3) SEC Sodium (136-148) mmol/L Potassium (3.5-5.1) mmol/L Chloride (98-107) mmol/L Carbon Dioxide (21.0-32.0) mmol/L BUN (7.0-18.0) mg/dL Creatinine (0.8-1.3) mg/dL Est Cr Clr Drug Dosing mL/min Estimated GFR (MDRD) ml/min Glucose (74-106) mg/dL Lactic Acid 1.4 (0.4-2.0) mmol/L Calcium (8.5-10.1) mg/dL Magnesium (1.8-2.4) mg/dL Total Bilirubin (0.2-1.0) mg/dL AST (15-37) IU/L ALT (14-63) IU/L Alkaline Phosphatase (46-116) U/L Troponin I (0.000-0.056) ng/mL Total Protein (6.4-8.2) g/dL Albumin (3.4-5.0) g/dL Globulin (2.6-4.0) g/dL Albumin/Globulin Ratio (0.9-1.6) Lipase (73-393) U/L TSH 3rd Generation (0.36-3.74) uIU/mL Urine Color YELLOW Urine Appearance CLEAR Urine pH 5.5 (5.0-8.0) Ur Specific [place] 1.020 (1.001-1.035) Urine Protein NEGATIVE (NEGATIVE) mg/dL Urine Glucose (UA) NEGATIVE (NEGATIVE) mg/dL Urine Ketones NEGATIVE (NEGATIVE) mg/dL Urine Occult Blood NEGATIVE (NEGATIVE) Urine Nitrite NEGATIVE (NEGATIVE) Urine Bilirubin NEGATIVE (NEGATIVE) Urine Urobilinogen 0.2 (<2.0) EU/dL Ur Leukocyte Esterase NEGATIVE (NEGATIVE) SARS-CoV-2 RNA (NAILA) (NEGATIVE) Blood Type Antibody Screen Meds: Medications Generic Name Dose Route Start Last Admin Trade Name Khushi PRN Reason Stop Dose Admin Diltiazem HCl 100 mg/ Sodium 100 mls @ 10 mls/hr 08/27/20 16:15 08/27/20 19:02 Chloride IV 10 mg/hr NOW ANGIE 10 mls/hr Titration Protocol 10 MG/HR Sodium Chloride 10 ml 08/27/20 13:07 08/27/20 13:19 Sodium Chloride 0.9% 10 Ml Syringe FLUSH 10 ml ASDIRECTED PRN Administration Keep Vein Open Sodium Chloride 2.5 ml 08/27/20 13:07 08/27/20 13:19 Sodium Chloride 0.9% 2.5 Ml Syringe FLUSH 2.5 ml ASDIRECTED PRN Administration Keep Vein Open Discontinued Medications Generic Name Dose Route Start Last Admin Trade Name Khushi PRN Reason Stop Dose Admin Diltiazem HCl 15 mg 08/27/20 14:48 08/27/20 15:00 Diltiazem 25 Mg/5 Ml Sdv IVPUSH 08/27/20 14:49 15 mg ONETIME ONE Administration Sodium Chloride 1,000 mls @ 1,000 mls/hr 08/27/20 13:09 08/27/20 13:18 Normal Saline IV 08/27/20 14:08 1,000 mls/hr .Bolus ONE Administration Levofloxacin/Dextrose 750 mg/ 150 mls @ 100 mls/hr 08/27/20 13:22 08/27/20 13:40 Premix IV 08/27/20 14:51 100 mls/hr ONETIME ONE Administration Pantoprazole Sodium 80 mg/ 20 mls @ 420 mls/hr 08/27/20 13:49 08/27/20 14:11 Sodium Chloride IVPUSH 08/27/20 13:51 420 mls/hr ONETIME ONE Administration Sodium Chloride 1,000 mls @ 999 mls/hr 08/27/20 13:57 08/27/20 14:11 Normal Saline IV 08/27/20 14:57 999 mls/hr STAT STA Administration Metronidazole 500 mg/ Premix 100 mls @ 100 mls/hr 08/27/20 17:33 08/27/20 18:06 IV 08/27/20 18:32 100 mls/hr ONETIME ONE Administration Ondansetron HCl 4 mg 08/27/20 13:07 08/27/20 13:19 Ondansetron 4 Mg/2 Ml Sdv IVPUSH 08/27/20 13:08 4 mg ONETIME ONE Administration Departure - Departure Time of Disposition: 19:20 Disposition: Admitted As Inpatient 65 Condition: Good Clinical Impression: Atrial fibrillation, new onset, Atrial fibrillation with RVR, Leukocytosis, Melena, Elevated lactic acid level - Discharge Information Referrals: PCP,Unknown [Ordering Only Provider] - Forms: ED Department Discharge Sepsis Event Note (ED) - Focused Exam Vital Signs: Vital Signs Temp Temp Pulse Pulse Resp BP Pulse Ox 08/27/20 18:36 97 08/27/20 18:05 113 H 17 103/55 L 96 08/27/20 17:00 142 H 17 106/68 95 08/27/20 16:01 128 H 145 H 14 103/64 94 L 08/27/20 15:08 92 15 100/61 95 08/27/20 14:41 165 H 17 114/65 95 08/27/20 13:23 37.4 C 08/27/20 13:11 34.4 C L 182 H 15 130/103 H 94 L - My Orders Last 24 Hours: My Active Orders 08/27/20 13:07 EKG Documentation Completion [RC] AM Sodium Chloride 0.9% [Saline Flush] 10 ml FLUSH ASDIRECTED PRN Sodium Chloride 0.9% [Saline Flush] 2.5 ml FLUSH ASDIRECTED PRN Saline Lock Insert [OM.PC] Stat 08/27/20 13:10 CULTURE BLOOD [BC] Stat 08/27/20 13:21 Blood Culture x2 Reflex Set [OM.PC] Stat 08/27/20 13:33 CULTURE BLOOD [BC] Stat 08/27/20 16:15 Diltiazem [Cardizem] 100 mg Sodium Chloride 0.9% [Normal Saline] 100 ml IV NOW 08/27/20 16:55 Abdomen Pelvis wo Cont [CT] Stat 08/27/20 17:20 CULTURE URINE [MREF] Stat - Assessment/Plan Last 24 Hours: My Active Orders 08/27/20 13:07 EKG Documentation Completion [RC] AM Sodium Chloride 0.9% [Saline Flush] 10 ml FLUSH ASDIRECTED PRN Sodium Chloride 0.9% [Saline Flush] 2.5 ml FLUSH ASDIRECTED PRN Saline Lock Insert [OM.PC] Stat 08/27/20 13:10 CULTURE BLOOD [BC] Stat 08/27/20 13:21 Blood Culture x2 Reflex Set [OM.PC] Stat 08/27/20 13:33 CULTURE BLOOD [BC] Stat 08/27/20 16:15 Diltiazem [Cardizem] 100 mg Sodium Chloride 0.9% [Normal Saline] 100 ml IV NOW 08/27/20 16:55 Abdomen Pelvis wo Cont [CT] Stat 08/27/20 17:20 CULTURE URINE [MREF] Stat
[2020-08-27] MEDS ORDERED: Levofloxacin/Dextrose 5%-Water 750 MG in Premix Bag 1 BAG IV ONE (13:22)
[2020-08-27] MEDS ORDERED: Pantoprazole 80 MG in Sodium Chloride 0.9% 20 ML IVPUSH ONE (13:49)
[2020-08-27] MEDS ORDERED: Sodium Chloride 0.9% 1,000 ML IV STA (13:57)
[2020-08-27 14:08] LABS: BLOOD UREA NITROGEN,BUN 55 mg/dL (7.0-18.0); CARBON DIOXIDE,CO2 22.5 mmol/L (21.0-32.0); CHLORIDE,CL 107 mmol/L (98-107); GLUCOSE RANDOM 187 mg/dL (74-106); LIPASE 65 U/L (73-393); POTASSIUM,K 4.7 mmol/L (3.5-5.1); SODIUM,NA 143 mmol/L (136-148)
--- NOTE | 2020-08-27 14:24 | CR ---
For Patients: As a result of the Century Cures Act, medical imaging exams and procedure reports are released immediately into your electronic medical record. You may view this report before your referring provider. If you have questions, please contact your health care provider. INDICATION: UNCONTROLLED HEART RATE TECHNIQUE: Chest 1 view. COMPARISON: 08/14/18 FINDINGS: Cardiovascular and mediastinum: Heart size and vasculature are normal in caliber and appearance. Mediastinum is within normal limits. Lungs and pleural space: Lungs are clear. No sign of infiltrate or mass. No sign of pleural effusion. No pneumothorax. Bones and soft tissues: No significant findings. IMPRESSION: Unremarkable chest. Dictated by: Channing Urias MD @ 08/27/2020 14:23:55 (Electronically Signed)
[2020-08-27] MEDS ORDERED: Diltiazem 25 MG/5 ML SDV IVPUSH ONE (14:48)
[2020-08-27] MEDS ORDERED: Diltiazem 100 MG in Sodium Chloride 0.9% 100 ML IV SCH (16:15)
[2020-08-27] MEDS ORDERED: metroNIDAZOLE/Normal Saline 500 MG in Premix Bag 1 BAG IV ONE (17:33)
[2020-08-27 18:06] VITALS: BP 103/55
[2020-08-27 18:37] VITALS: PULSE 97
--- NOTE | 2020-08-27 19:13 | CT ---
Indication: Melena Technique: Noncontrast CT abdomen and pelvis Comparison: No comparison Findings: Heart size normal. Basilar atelectasis or fibrotic change Enhanced liver appears unremarkable. Gallbladder pancreas adrenal glands, spleen are unremarkable. On kidneys are unremarkable. Atherosclerotic calcification of the abdominal aorta with infrarenal abdominal aortic aneurysm measuring 3.7 cm. Right iliac stent. Femoral femoral bypass graft. Stomach decompressed no free air. Diverticulosis. Mild inflammatory change adjacent to the sigmoid colon. No bowel obstruction normal appendix. Urinary bladder decompressed with mild thickening. Prostate gland unremarkable. No suspicious bony lesions. Probable left hydrocele. Impression: 1. Diverticulosis. Minimal inflammatory change adjacent to sigmoid colon may represent mild diverticulitis. 2. There is otherwise no acute findings in the abdomen or pelvis. No free air stomach decompressed. 3. Infrarenal abdominal aortic aneurysm measuring 3.7 cm. Please note that all CT scans at this facility use dose modulation, iterative reconstruction, and/or weight-based dosing when appropriate to reduce radiation dose to as low as reasonably achievable. Dictated by Shaina Negrete MD @ 08/27/2020 7:12:[address] Shaina Negrete @ Aug 27 2020 7:12PM
== END 2020-08-27 19:36 ==
LOC: MW.ED 12:59
DX: K92.1 Melena (principal); I48.91 Unspecified atrial fibrillation; R74.02 Elevation of levels of lactic acid dehydrogenase [LDH]; D72.829 Elevated white blood cell count, unspecified; Z20.822 Contact with and (suspected) exposure to COVID-19; I10 Essential (primary) hypertension; E78.00 Pure hypercholesterolemia, unspecified; J44.9 Chronic obstructive pulmonary disease, unspecified; Z88.0 Allergy status to penicillin; Z79.899 Other long term (current) drug therapy
CPT/HCPCS: 36415; 71045; 74176; 80053; 81003; 83605; 83690; 83735; 84443; 84484; 85014; 85018; 85025; 85610; 85730; 86850; 86900; 86901; 87040; 87086; 87635; 93005; 96365; 96366; 96368; 96375; 96376; 99285; C9113; J1956; J2405; J3490; J7030; U0002

== ENCOUNTER 2020-10-18 18:14 | Observation (INO) | payer BC, MEDICARE ==
[2020-10-18] MEDS ORDERED: Sodium Chloride 0.9% 10 ML SDV IV PRN (19:40)
[2020-10-18] MEDS ORDERED: Sodium Chloride 0.9% 2.5 ML Syringe FLUSH PRN (19:40)
[2020-10-18] MEDS ORDERED: Sodium Chloride 0.9% 10 ML Syringe FLUSH PRN (19:40)
--- NOTE | 2020-10-18 20:00 | EDM.PDOC ---
ED HPI GENERAL MEDICAL PROBLEM - General Chief Complaint: Neuro Symptoms/Deficits Stated Complaint: WEAKNESS OF RT SIDE Time Seen by Provider: 10/18/20 19:37 - History of Present Illness INITIAL COMMENTS - FREE TEXT/NARRATIVE: HISTORY AND PHYSICAL: History of present illness: This is a 65-year-old gentleman with a history significant for stroke 5 years ago, diverticulitis, COPD, hypertension, currently on Plavix and aspirin for his prior stroke, who presents ER today secondary to abnormal gait noticed by his at 6 PM. reports that approximately 2 days ago patient was complaining of weakness to his right lower extremity and right arm with some paresthesias to his right upper extremity. reports that they did not seek medical attention at that time. reports that when he woke up this morning at 7 AM he was walking at his "new baseline "with some weakness to his right lower extremity. She reports that when she saw him his last known well was at noon when he was once again ambulating with his "new baseline "weakness to his right lower extremity. She noticed that today at 6 PM when he was walking his right lower extremity weakness was significantly more pronounced than it was over the last couple days and he was walking in circles. She reports that he has no other complaints of slurring the speech, facial asymmetry, loss of bowel or bladder function, fevers, shakes, chills, nausea, vomiting, diarrhea, dysuria, frequency, urgency, chest pain, shortness of breath. reports that his prior stroke consisted of bilateral peripheral vision loss with no weakness to his upper or lower extremities. She reports that over the last 5 years he has been in relatively good health regarding his stroke. She reports that recently he did have what she describes as an SVT during a diagnosis of diverticulitis that required transfer to [facility] for treatment of diverticulitis and SVT but reports that he was not placed on any medication for it. She reports that on Wednesday he had a colonoscopy at home and had 5 polyps removed. reports that his Plavix has been stopped prior to the biopsies and colonoscopy and he restarted his Plavix on Wednesday which coincidently was the same day that his symptoms restarted again. She reports that the weakness in his right lower extremity occurred while they are leaving 's office her primary care physician. Review of systems: As per history of present illness and below otherwise all systems reviewed and negative. Past medical history: As per history of present illness and as reviewed below otherwise noncontributory. Surgical history: As per history of present illness and as reviewed below otherwise noncontributory. Social history: No reported history of drug abuse. Family history: As per history of present illness and as reviewed below otherwise noncontributory. Physical exam: This patient was seen and evaluated during the 2019 SARS-CoV-2 novel coronavirus pandemic period. Community viral transmission is ongoing at time of this encounter and the emergency department is operating under pandemic response procedures. Constitutional: Patient is oriented to person, place, and time. Appears well-developed and well-nourished. No distress. HEENT: Moist mucous membranes Head: Normocephalic and atraumatic Eyes: Right eye exhibits no discharge. Left eye exhibits no discharge. No scleral icterus Neck: Normal range of motion. No tracheal deviation present. Cardiovascular: Normal rate and regular rhythm. Pulmonary: Effort normal, no respiratory distress. Abdominal: No distention Musculoskeletal: Normal range of motion Neurologic: Alert and oriented to person, place and time. Skin: [place], warm and dry. Psychiatric: Normal mood and affect. Behavior is normal. Judgment and thought content normal. Nursing note and vital signs have been reviewed Neuro: A&Ox3. Cranial nerves II-XII grossly intact, 5/5 strength to bilateral upper and lower extremities, sensation intact to bilateral upper and lower extremities, no nystagmus, PERRLA, EOMI, normal speech, proprioception intact to bilateral lower extremities, normal finger to nose test, patient has atypical gait and is clearly having weakness to his right lower extremity however his reports that this is better than it was at 6 PM when she brought into the ED. 1a) Level of consciousness: 0=alert; 1=not alert but arousable by minor stimulation; 2=not alert: requires repeated stimulation to attend or is obtunded and requires strong or painful stimulation to make movements; 3=responds only with reflex motor or autonomic effects or totally unresponsive, flaccid and areflexic SCORE 0 1b) LOC questions ("what month is it?", "how old are you?"): 0=answers both correctly; 1=answers one correctly; 2=answers neither correctly SCORE 0 1c) LOC commands (command patient to "open and close your eyes. Bicycle Rep[employer] and release your hand.): 0=performs both correctly; 1=performs one correctly; 2=performs neither correctly SCORE 0 2) Best gaze ("follow my finger"): 0=normal; 1=partial gaze palsy; 2=forced deviation or total gaze paresis SCORE 0 3) Visual lopez (use confrontation, finger counting, or visual threat. confront upper/lower quadrants of visual field): 0=no visual loss; 1=partial hemianopsia; 2=complete hemianopsia; 3=bilateral hemianopsia SCORE OLD 3 4) Facial palsy (by words or pantomime, encourage patient to: "Show me your teeth. Raise your eyebrows. Close your eyes."): 0=normal symmetrical movement; 1=minor paralysis (flattened nasolabial fold, asymmetry on smiling); 2=partial paralysis (lower face); 3=complete paralysis SCORE 0 5) Arm motor (alternately position patient's arms. extend each arm with palms down [90 degrees if sitting, 45 degrees if supine] - test each arm in turn and start with nonparetic arm first): 0=no drift; 1=drift (arm falls before 10 seconds); 2=some effort vs. gravity; 3=no effort vs. gravity; 4=no movement; UN (untestable)=amputation or joint fusion SCORE 0 6) Leg motor (alternately position patient's legs. extend each leg [30 degrees, always while supine] - test nonparetic leg first): 0=no drift; 1=drift (leg falls before 5 seconds); 2=some effort vs. gravity; 3= no effort vs. gravity; 4=no movement; UN=amputation or joint fusion SCORE 0 7) Limb ataxia (ask patient [eyes open] to: "touch your finger to your nose. touch your heel to your eduardo"): 0=absent; 1=present in one limb; 2=present in two or more limbs; UN=amputation or joint fusion SCORE 0 8) Sensory (test as many body parts as possible [arms and not hands, legs, trunk, face] for sensation using pinprick or noxious stimuli [in the obtunded or aphasic patient]): 0=normal; 1=mild to moderate sensory loss; 2=severe to total sensory loss SCORE 0 9) Best language (using pictures and a sentence list, ask patient to "describe what you see in this picture. Name the items in this picture. Read these sentences"): 0=no aphasia, 1=mild to moderate aphasia; 2=severe aphasia; 3=mute, global aphasia SCORE [0] 10) Dysarthria (using a simple word list, ask patient to: "read these words" or "repeat these words"): 0=normal articulation; 1=mild to moderate dysarthria; 2=severe dysarthria; UN=intubated or other physical barrier SCORE 0 11) Extinction and inattention (sufficient information to determine these scores may have been obtained during the prior testing): 0=no abnormality; 1=visual, tactile, auditory, spatial or personal inattention; 2=profound digna-inattention or extinction to more than one modality SCORE 3 (baseline) TOTAL NIHSS Score:0 Diagnostics: This is a 65-year-old gentleman with history significant for hypertension, CVA, on Plavix and aspirin who presents ER today secondary to weakness to his right lower extremity that started on Wednesday and has gotten significantly worse on 6 PM. Patient had a recent biopsy of polyps performed on Wednesday and had his Plavix and aspirin stopped up until Wednesday. Patient's NIH score currently is 0 and his gait according to his is back to the way it was on Wednesday when they left her doctor's office. Patient will have a CT head, CTA of head and neck. A stroke alert was initiated secondary to the patient's symptoms. Patient's last known well is approximately noon time when the last saw the patient walk. Although he is ambulation at noon time is worse than it was at his baseline, it appears to be his new baseline since his new symptoms started on Wednesday. Therapeutics: [] Assessment and plan: 65-year-old gentleman who presents ER today with new onset of weakness to his right lower extremity. Patient CT scan of his head/CTA of his head and neck have been unremarkable. Patient has recently stopped Plavix and aspirin for his colonoscopy/polypectomies. Patient symptoms started on Wednesday however according to the his symptoms were noted to be much worse at 6 PM this evening. As patient developed a new baseline weakness on Wednesday, is new last known well would have been noon and would be outside the window for treatment. At this time the patient is ambulating in the ED was his baseline gait. Patient has no weakness but does have slightly difficulty with walking. Patient will be admitted for observation. Case discussed with the hospitalist. Definitive disposition and diagnosis as appropriate pending reevaluation and review of above. - Related Data Allergies Allergy/AdvReac Type Severity Reaction Status Date / Time codeine Allergy Swelling Verified 08/27/20 13:14 Penicillins Allergy Anaphylactic Verified 08/27/20 13:14 Shock Home Meds: Home Meds Clopidogrel [Plavix] 75 mg PO DAILY 07/06/15 [History] amLODIPine [Norvasc] 5 mg PO DAILY 07/06/15 [History] lisinopriL [Zestril] 10 mg PO DAILY 07/06/15 [History] Nitroglycerin 0.4 mg SL ASDIRECTED 09/13/18 [History] atorvaSTATin Calcium [Atorvastatin Calcium] 40 mg PO DAILY 09/13/18 [History] carvediloL [Carvedilol] 3.125 mg PO BID 09/13/18 [History] Past Medical History HEENT History: Reports: None Cardiovascular History: Reports: High Cholesterol, Hypertension Other Cardiovascular History: femoral bypass surgery 5 years ago. heart blockage Respiratory History: Reports: COPD Gastrointestinal History: Reports: None Genitourinary History: Reports: None Musculoskeletal History: Reports: None Neurological History: Reports: None Psychiatric History: Reports: None Endocrine/Metabolic History: Reports: None Hematologic History: Reports: None Immunologic History: Reports: None Dermatologic History: Reports: None - Infectious Disease History Infectious Disease History: Reports: Measles, Mumps - Past Surgical History Head Surgeries/Procedures: Reports: None HEENT Surgical History: Reports: None Cardiovascular Surgical History: Reports: None GI Surgical History: Reports: Other (See Below) Other GI Surgeries/Procedures: hernia surgery Social & Family History - Family History Family Medical History: No Pertinent Family History - Tobacco Use Tobacco Use Status *Q: Current Every Day Tobacco User Years of Tobacco use: 55 Packs/Tins Daily: 1 - Caffeine Use Caffeine Use: Reports: Coffee - Recreational Drug Use Recreational Drug Use: Yes Recreational Drug Type: Reports: Marijuana/Hashish Recreational Drug Use Frequency: Daily ED ROS GENERAL - Review of Systems Review Of Systems: See Below ED EXAM, GENERAL - Physical Exam Exam: See Below #1 Interpretation EKG Interpretation Comments: EKG: October 18, 2020 10:07 PM As interpreted by ER physician: Levon: Nonspecific ST-T wave abnormalities Normal axis No evidence of ST elevation HI Normal sinus rhythm heart rate of 71 Course - Vital Signs Last Recorded V/S: Last Vital Signs Temp 97.6 F 10/18/20 19:17 Pulse 111 H 10/18/20 19:17 Resp 18 10/18/20 19:17 BP 101/65 10/18/20 19:17 Pulse Ox 96 10/18/20 19:17 - Orders/Labs/Meds Orders: Active Orders 24 hr Category Date Time Status Assess Neurological Status [RC] ASDIRECTED Care 10/18/20 19:40 Active Bedrest [RC] ASDIRECTED Care 10/18/20 19:40 Active Blood Glucose Check, Bedside [RC] ONETIME Care 10/18/20 19:40 Active Cardiac Monitoring [RC] . DIRECTED Care 10/18/20 19:40 Active EKG Documentation Completion [RC] STAT Care 10/18/20 19:40 Active Height and Weight [RC] UPON Care 10/18/20 19:40 Active Initiate Acute Stroke Protocol [RC] STAT Care 10/18/20 19:40 Active NIH Stroke Scale [RC] ASDIRECTED Care 10/18/20 19:40 Active Oxygen Therapy [RC] ASDIRECTED Care 10/18/20 19:40 Active Stroke Education, General [RC] Click to Edit Care 10/18/20 19:40 Active Vital Signs [RC] Q15M Care 10/18/20 19:40 Active CORONAVIRUS COVID-19 NAILA [MOLEC] Stat Lab 10/18/20 21:20 Received UA W/MICROSCOPIC [URIN] Stat Lab 10/18/20 19:41 Ordered Sodium Chloride 0.9% [Normal Saline] Med 10/18/20 19:40 Active 10 ml IV ASDIRECTED PRN Sodium Chloride 0.9% [Saline Flush] Med 10/18/20 19:40 Active 10 ml FLUSH ASDIRECTED PRN Sodium Chloride 0.9% [Saline Flush] Med 10/18/20 19:40 Active 2.5 ml FLUSH ASDIRECTED PRN Peripheral IV Insertion Adult [OM.PC] Stat Oth 10/18/20 19:40 Ordered Peripheral IV Insertion Adult [OM.PC] Stat Oth 10/18/20 19:40 Ordered Medication Orders Sodium Chloride (Sodium Chloride 0.9% 10 Ml Syringe) 10 ml FLUSH ASDIRECTED PRN PRN Reason: Keep Vein Open Sodium Chloride (Sodium Chloride 0.9% 2.5 Ml Syringe) 2.5 ml FLUSH ASDIRECTED PRN PRN Reason: Keep Vein Open Sodium Chloride (Sodium Chloride 0.9% 10 Ml Sdv) 10 ml IV ASDIRECTED PRN PRN Reason: IV Use Labs: Laboratory Tests 10/18/20 10/18/20 10/18/20 Range/Units 18:20 18:20 18:20 WBC 8.54 (4.0-11.0) K/uL RBC 4.76 (4.50-5.90) M/uL Hgb 14.7 (13.0-17.0) g/dL Hct 43.3 (38.0-50.0) % MCV 91.0 (80.0-98.0) fL MCH 30.9 (27.0-32.0) pg MCHC 33.9 (31.0-37.0) g/dL RDW Std Deviation 43.2 (28.0-62.0) fl RDW Coeff of Zhen 13 (11.0-15.0) % Plt Count 267 (150-400) K/uL MPV 10.60 (7.40-12.00) fL Neut % (Auto) 54.0 (48.0-80.0) % Lymph % (Auto) 27.0 (16.0-40.0) % Kleberg % (Auto) 10.2 (0.0-15.0) % Eos % (Auto) 7.7 H (0.0-7.0) % Baso % (Auto) 1.1 (0.0-1.5) % Neut # (Auto) 4.6 (1.4-5.7) K/uL Lymph # (Auto) 2.3 (0.6-2.4) K/uL Kleberg # (Auto) 0.9 H (0.0-0.8) K/uL Eos # (Auto) 0.7 (0.0-0.7) K/uL Baso # (Auto) 0.1 (0.0-0.1) K/uL Nucleated RBC % 0.0 /100WBC Nucleated RBCs # 0 K/uL INR 1.06 APTT 28.9 (18.6-31.3) SEC Sodium 141 (136-148) mmol/L Potassium 3.9 (3.5-5.1) mmol/L Chloride 105 (98-107) mmol/L Carbon Dioxide 28.7 (21.0-32.0) mmol/L BUN 14 (7.0-18.0) mg/dL Creatinine 1.1 (0.8-1.3) mg/dL Est Cr Clr Drug Dosing 58.49 mL/min Estimated GFR (MDRD) > 60.0 ml/min Glucose 117 H (74-106) mg/dL Calcium 8.3 L (8.5-10.1) mg/dL Total Bilirubin 0.3 (0.2-1.0) mg/dL AST 25 (15-37) IU/L ALT 28 (14-63) IU/L Alkaline Phosphatase 129 H (46-116) U/L Troponin I < 0.050 (0.000-0.056) ng/mL Total Protein 6.7 (6.4-8.2) g/dL Albumin 3.3 L (3.4-5.0) g/dL Globulin 3.4 (2.6-4.0) g/dL Albumin/Globulin Ratio 1.0 (0.9-1.6) Ethyl Alcohol < 3.0 mg/dL Meds: Medications Generic Name Dose Route Start Last Admin Trade Name Khushi PRN Reason Stop Dose Admin Sodium Chloride 10 ml 10/18/20 19:40 Sodium Chloride 0.9% 10 Ml Syringe FLUSH ASDIRECTED PRN Keep Vein Open Sodium Chloride 2.5 ml 10/18/20 19:40 Sodium Chloride 0.9% 2.5 Ml Syringe FLUSH ASDIRECTED PRN Keep Vein Open Sodium Chloride 10 ml 10/18/20 19:40 Sodium Chloride 0.9% 10 Ml Sdv IV ASDIRECTED PRN IV Use Discontinued Medications Generic Name Dose Route Start Last Admin Trade Name Frefina PRN Reason Stop Dose Admin Iopamidol 100 ml 10/18/20 20:27 10/18/20 20:27 Iopamidol 755 Mg/Ml 500 Ml Multipack Bottle IVPUSH 10/18/20 20:28 100 ml ONETIME STA Administration Departure - Departure Time of Disposition: 21:19 Disposition: Refer to Observation Condition: Good Clinical Impression: Acute embolic stroke - Discharge Information Sepsis Event Note (ED) - Evaluation Sepsis Screening Result: No Definite Risk - Focused Exam Vital Signs: Vital Signs Temp Pulse Resp BP Pulse Ox 10/18/20 19:17 97.6 F 111 H 18 101/65 96 - My Orders Last 24 Hours: My Active Orders 10/18/20 19:40 Assess Neurological Status [RC] ASDIRECTED Bedrest [RC] ASDIRECTED Blood Glucose Check, Bedside [RC] ONETIME Cardiac Monitoring [RC] . DIRECTED EKG Documentation Completion [RC] STAT Height and Weight [RC] UPON Initiate Acute Stroke Protocol [RC] STAT NIH Stroke Scale [RC] ASDIRECTED Oxygen Therapy [RC] ASDIRECTED Stroke Education, General [RC] Click to Edit Vital Signs [RC] Q15M Sodium Chloride 0.9% [Normal Saline] 10 ml IV ASDIRECTED PRN Sodium Chloride 0.9% [Saline Flush] 10 ml FLUSH ASDIRECTED PRN Sodium Chloride 0.9% [Saline Flush] 2.5 ml FLUSH ASDIRECTED PRN Peripheral IV Insertion Adult [OM.PC] Stat Peripheral IV Insertion Adult [OM.PC] Stat 10/18/20 19:41 UA W/MICROSCOPIC [URIN] Stat 10/18/20 21:20 CORONAVIRUS COVID-19 NAILA [MOLEC] Stat - Assessment/Plan Last 24 Hours: My Active Orders 10/18/20 19:40 Assess Neurological Status [RC] ASDIRECTED Bedrest [RC] ASDIRECTED Blood Glucose Check, Bedside [RC] ONETIME Cardiac Monitoring [RC] . DIRECTED EKG Documentation Completion [RC] STAT Height and Weight [RC] UPON Initiate Acute Stroke Protocol [RC] STAT NIH Stroke Scale [RC] ASDIRECTED Oxygen Therapy [RC] ASDIRECTED Stroke Education, General [RC] Click to Edit Vital Signs [RC] Q15M Sodium Chloride 0.9% [Normal Saline] 10 ml IV ASDIRECTED PRN Sodium Chloride 0.9% [Saline Flush] 10 ml FLUSH ASDIRECTED PRN Sodium Chloride 0.9% [Saline Flush] 2.5 ml FLUSH ASDIRECTED PRN Peripheral IV Insertion Adult [OM.PC] Stat Peripheral IV Insertion Adult [OM.PC] Stat 10/18/20 19:41 UA W/MICROSCOPIC [URIN] Stat 10/18/20 21:20 CORONAVIRUS COVID-19 NAILA [MOLEC] Stat
[2020-10-18 20:14] LABS: BLOOD UREA NITROGEN,BUN 14 mg/dL (7.0-18.0); CARBON DIOXIDE,CO2 28.7 mmol/L (21.0-32.0); CHLORIDE,CL 105 mmol/L (98-107); GLUCOSE RANDOM 117 mg/dL (74-106); POTASSIUM,K 3.9 mmol/L (3.5-5.1); SODIUM,NA 141 mmol/L (136-148)
[2020-10-18] MEDS ORDERED: Iopamidol 755 MG/ML 500 ML Multipack Bottle IVPUSH STA (20:27)
--- NOTE | 2020-10-18 20:32 | CR ---
INDICATION: Stroke code TECHNIQUE: Chest 1 views COMPARISON: August 27, 2020 FINDINGS: Cardiovascular and mediastinum: Heart size and vasculature are normal in caliber and appearance. Lungs and pleural spaces: Lungs are clear. No sign of infiltrate or mass. No sign of pleural effusion. No pneumothorax. Bones and soft tissues: No significant findings. IMPRESSION: No acute findings and no significant changes from the prior exam. Dictated by Lucio Delnua MD @ 10/18/2020 8:30:22 PM (Electronically Signed)
--- NOTE | 2020-10-18 20:40 | CT ---
DATE: 10/18/2020. CLINICAL HISTORY: Patient with acute neurological deficit. TECHNIQUE: Standard helical CT image acquisition through the head and neck after intravenous contrast bolus enhancement was performed. Multiplanar reconstructed images performed on a separate workstation. COMPARISON: Head CT dated 10/18/2020. FINDINGS: The origins of the great vessels from the aortic arch are patent. The origins of the right and left vertebral arteries are patent. The common carotid arteries are patent. Mild (less than 50 percent) atherosclerotic luminal stenosis of the bilateral proximal internal carotid arteries by NASCET criteria. The more distal cervical segments of the internal carotid arteries are patent. The right vertebral artery is dominant. The cervical segments of the vertebral arteries are patent. There is occlusion of the proximal to mid P2 segment of the left posterior cerebral artery. This is of uncertain chronicity. There is otherwise no evidence of intracranial proximal large vessel occlusion or flow-limiting luminal stenosis. Emphysematous changes within the visualized upper lungs including a more prominent cystic structure within the left upper lobe with associated fluid density in the dependent portion most consistent with an air-fluid level. Dedicated chest CT is recommended for further assessment. The thyroid gland is unremarkable. There are degenerative changes in the cervical spine. Mild compression deformity of the T5 vertebral body of uncertain chronicity. Correlate with point tenderness. IMPRESSION: 1. 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 This is of uncertain chronicity. 2. Mild (less than 50 percent) atherosclerotic luminal stenoses of the bilateral proximal internal carotid arteries by NASCET criteria. 3. Emphysematous changes within the visualized upper lungs with an apparent air-fluid level in a more prominent cystic structure in the left upper lobe. Dedicated chest CT is recommended for further assessment. Please note that all CT scans at this facility use dose modulation, iterative reconstruction, and/or weight-based dosing when appropriate to reduce radiation dose to as low as reasonably achievable. Dictated by Bora Levin MD @ 10/19/2020 1:50:48 PM (Electronically Signed)
--- NOTE | 2020-10-18 20:45 | CT ---
INDICATION: difficulty walking with right sided lower and upper extremity weakness, had a stroke 5 years ago TECHNIQUE: CT Head without i.v. contrast. Coronal and sagittal reformats were obtained. COMPARISON: 07/06/2015 FINDINGS: CSF space: Unremarkable for age. Brain: No evidence of mass, acute infarction or hemorrhage is seen. No mass-effect or midline shift is seen. Mild diffuse cortical atrophy is noted. Chronic encephalomalacia is present in the medial left occipital lobe. Calvarium: Opacification of the ethmoid air cells are noted bilaterally. Mild mucosal thickening seen in the maxillary and sphenoid sinuses. The mastoid air cells are clear. The patient is status post right cataract removal. The calvarium is unremarkable in appearance with no fractures identified. IMPRESSION: 1. No evidence of acute infarction, intracranial hemorrhage, or mass-effect seen. Dictated by Dar Walden MD @ 10/18/2020 8:32:40 PM Please note that all CT scans at this facility use dose modulation, iterative reconstruction, and/or weight-based dosing when appropriate to reduce radiation dose to as low as reasonably achievable. Dictated by: Dar Walden MD @ 10/18/2020 20:43:58 (Electronically Signed)
[2020-10-18] MEDS ORDERED: Acetaminophen 325 MG Tab PO PRN (23:53)
[2020-10-18] MEDS ORDERED: Albuterol/Ipratropium 3.0-0.5 MG/3 ML Neb Soln NEB PRN (23:53)
[2020-10-18] MEDS ORDERED: Ondansetron 4 MG/2 ML SDV IVPUSH PRN (23:53)
--- NOTE | 2020-10-18 23:59 | PCM.HP.2 ---
H&P History of Present Illness - General Date of Service: 10/18/20 Admit Problem/Dx: Admission Diagnosis/Problem Admission Diagnosis/Problem Stroke-like symptoms - History of Present Illness Initial Comments - Free Text/Narative: This is a 65-year-old gentleman with a history significant for stroke 5 years ago, diverticulitis, COPD, hypertension, currently on Plavix and aspirin for his prior stroke,, history of A. fib RVR in the past who presents ER today secondary to abnormal gait noticed by his at 6 PM. Per patient's at bedside approximately 2 days ago when he was coming out of his appointment with his primary care doctor patient complained feeling numb in his right lower leg and right arm with some weakness. I recommended going to the ER or going back to the PCP office but patient refused and ended up not seeking medical attention at that time. Per patient his symptoms resolved thereafter but but on Wednesday he ended up hitting his foot as well has his arm and there after he is feeling some weakness in his leg which was noticed by his today late evening at 6 PM when he had trouble walking. Patient's previous stroke resulted in him having bilateral peripheral vision loss but no weakness of his upper or lower extremities. Patient states that he had to undergo colonoscopy on Wednesday and therefore had to stop his Plavix and aspirin for 6 days preceding the colonoscopy. It looks like patient had a major episode of GI bleed resulting in A. fib RVR in the past and required to be transferred for the same. During my encounter patient's all symptoms have resolved he normal had weakness or numbness or tingling. Patient mostly contributes his unsteady gait to him holding his foot and arm by hitting it against a wall at home. Patient states that he has not been particularly eating or drinking well for last 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 Patient was not a candidate for urgent transfer at this point per ER physician's assessment. Due to the above-mentioned concerns given patient's history of prior stroke patient was admitted under observation for 24 hours to make sure he has no worsening symptoms. He was out of the window for TPA and symptoms had almost resolved. Upon ambulation patient did have some unsteady gait but patient states his weakness and unsteady gait is positional and only happens when he is standing otherwise he does not feel weak at all which was consistent with my exam. It was explained to the patient that we do not have MRI capabilities 2D echo over the weekend unless his symptoms progress he will require outpatient work-up and follow-up with the neurologist as well as his primary care. - Related Data Allergies/Adverse Reactions: Allergies Allergy/AdvReac Type Severity Reaction Status Date / Time codeine Allergy Swelling Verified 10/18/20 22:52 Penicillins Allergy Anaphylactic Verified 10/18/20 22:52 Shock Home Medications: Home Meds Clopidogrel [Plavix] 75 mg PO DAILY 07/06/15 [History] amLODIPine [Norvasc] 5 mg PO DAILY 07/06/15 [History] lisinopriL [Zestril] 10 mg PO DAILY 07/06/15 [History] Nitroglycerin 0.4 mg SL ASDIRECTED 09/13/18 [History] carvediloL [Carvedilol] 3.125 mg PO BID 09/13/18 [History] Aspirin 81 mg PO DAILY 10/18/20 [History] Pantoprazole [ProTONIX] 40 mg PO DAILY 10/18/20 [History] Vitamin E (Dl,Tocopheryl Acet) [Vitamin E] 180 mg PO DAILY 10/18/20 [History] Zinc 50 mg pe PO DAILY 10/18/20 [History] Cholecalciferol (Vitamin D3) [Vitamin D3] 1,000 unit PO DAILY 10/19/20 [History] Iron 65 mg PO DAILY 10/19/20 [History] Magnesium Citrate 100 mg PO BID 10/19/20 [History] Multivitamin [Multi-Vitamin Daily] 1 each PO DAILY 10/19/20 [History] atorvaSTATin Calcium [Atorvastatin Calcium] 80 mg PO DAILY #30 tablet 10/19/20 [Rx] Past Medical History HEENT History: Reports: None Cardiovascular History: Reports: High Cholesterol, Hypertension Other Cardiovascular History: femoral bypass surgery 5 years ago. heart blockage Respiratory History: Reports: COPD Gastrointestinal History: Reports: None Genitourinary History: Reports: None Musculoskeletal History: Reports: None Neurological History: Reports: CVA Psychiatric History: Reports: None Endocrine/Metabolic History: Reports: None Hematologic History: Reports: None Immunologic History: Reports: None Oncologic (Cancer) History: Reports: None Dermatologic History: Reports: None - Infectious Disease History Infectious Disease History: Reports: Measles, Mumps - Past Surgical History Head Surgeries/Procedures: Reports: None HEENT Surgical History: Reports: None Cardiovascular Surgical History: Reports: Vascular Surgery, Other (See Below) Other Cardiovascular Surgeries/Procedures: Femoral bypass surgery 5 years ago GI Surgical History: Reports: Other (See Below) Other GI Surgeries/Procedures: hernia surgery Social & Family History - Family History Family Medical History: No Pertinent Family History - Tobacco Use Tobacco Use Status *Q: Current Every Day Tobacco User Years of Tobacco use: 40 Packs/Tins Daily: 0.2 - Caffeine Use Caffeine Use: Reports: None - Recreational Drug Use Recreational Drug Use: Yes Drug Use in Last 12 Months: Yes Recreational Drug Type: Reports: Marijuana/Hashish Other Recreational Drug Type: medical Marijuana Recreational Drug Use Frequency: Daily H&P Review of Systems - Review of Systems: Review Of Systems: See Below General: Reports: Malaise. Denies: Fever, Chills, Weakness HEENT: Denies: Dysphasia, Ear Pain Pulmonary: Denies: Shortness of Breath, Wheezing, Pleuritic Chest Pain Cardiovascular: Denies: Chest Pain, Palpitations, Dyspnea on Exertion Gastrointestinal: Denies: Abdominal Pain, Anorexia, Black Stool Genitourinary: Denies: Dysuria, Frequency, Burning Musculoskeletal: Reports: Arm Pain, Leg Pain. Denies: Neck Pain, Shoulder Pain, Back Pain Skin: Denies: Jaundice, Mottled, Diaphoresis Psychiatric: Denies: Confusion, Depression, Mood Lability Neurological: Reports: Difficulty Walking, Weakness, Gait Disturbance. Denies: Confusion, Dizziness, Headache, Numbness, Tingling, Tremors, Trouble Speaking, Change in Speech Exam - Exam Exam: See Below - Vital Signs Vital Signs: Last Vital Signs Temp 36.2 C 10/18/20 22:45 Pulse 69 10/18/20 22:45 Resp 18 10/18/20 22:45 BP 129/81 10/18/20 22:45 Pulse Ox 95 10/18/20 22:45 Weight: 61.87 kg - Exam General: Alert, Oriented Neck: Supple, Trachea Midline Lungs: Clear to Auscultation Cardiovascular: Regular Rate, Regular Rhythm GI/Abdominal Exam: Normal Bowel Sounds, Soft, Non-Tender Extremities: Normal Inspection, Normal Range of Motion, Non-Tender, No Pedal Edema Neurological: Strength Equal Bilateral, Normal Speech, Normal Tone, Abnormal Gait. No: Hyperreflexia, Hyporeflexia Neuro Extensive - Mental Status: Alert, Oriented x3 Neuro Extensive - Motor, Sensory, Reflexes: Normal Reflexes. No: Tongue Deviation (L), Facial palsy (L), Facial Palsy w Forehead, Facial Palsy wo Fore head, Hemeplagia (R), Hemeplagia (L), Pronator Drift (R) - Patient Data Lab Results Last 24 hrs: Laboratory Results - last 24 hr 10/18/20 10/18/20 10/18/20 Range/Units 18:20 18:20 18:20 WBC 8.54 (4.0-11.0) K/uL RBC 4.76 (4.50-5.90) M/uL Hgb 14.7 (13.0-17.0) g/dL Hct 43.3 (38.0-50.0) % MCV 91.0 (80.0-98.0) fL MCH 30.9 (27.0-32.0) pg MCHC 33.9 (31.0-37.0) g/dL RDW Std Deviation 43.2 (28.0-62.0) fl RDW Coeff of Zhen 13 (11.0-15.0) % Plt Count 267 (150-400) K/uL MPV 10.60 (7.40-12.00) fL Neut % (Auto) 54.0 (48.0-80.0) % Lymph % (Auto) 27.0 (16.0-40.0) % [place] % (Auto) 10.2 (0.0-15.0) % Eos % (Auto) 7.7 H (0.0-7.0) % Baso % (Auto) 1.1 (0.0-1.5) % Neut # (Auto) 4.6 (1.4-5.7) K/uL Lymph # (Auto) 2.3 (0.6-2.4) K/uL [place] # (Auto) 0.9 H (0.0-0.8) K/uL Eos # (Auto) 0.7 (0.0-0.7) K/uL Baso # (Auto) 0.1 (0.0-0.1) K/uL Nucleated RBC % 0.0 /100WBC Nucleated RBCs # 0 K/uL INR 1.06 APTT 28.9 (18.6-31.3) SEC Sodium 141 (136-148) mmol/L Potassium 3.9 (3.5-5.1) mmol/L Chloride 105 (98-107) mmol/L Carbon Dioxide 28.7 (21.0-32.0) mmol/L BUN 14 (7.0-18.0) mg/dL Creatinine 1.1 (0.8-1.3) mg/dL Est Cr Clr Drug Dosing 58.49 mL/min Estimated GFR (MDRD) > 60.0 ml/min Glucose 117 H (74-106) mg/dL Calcium 8.3 L (8.5-10.1) mg/dL Total Bilirubin 0.3 (0.2-1.0) mg/dL AST 25 (15-37) IU/L ALT 28 (14-63) IU/L Alkaline Phosphatase 129 H (46-116) U/L Troponin I < 0.050 (0.000-0.056) ng/mL Total Protein 6.7 (6.4-8.2) g/dL Albumin 3.3 L (3.4-5.0) g/dL Globulin 3.4 (2.6-4.0) g/dL Albumin/Globulin Ratio 1.0 (0.9-1.6) Ethyl Alcohol < 3.0 mg/dL SARS-CoV-2 RNA (NAILA) (NEGATIVE) 10/18/20 Range/Units 21:20 WBC (4.0-11.0) K/uL RBC (4.50-5.90) M/uL Hgb (13.0-17.0) g/dL Hct (38.0-50.0) % MCV (80.0-98.0) fL MCH (27.0-32.0) pg MCHC (31.0-37.0) g/dL RDW Std Deviation (28.0-62.0) fl RDW Coeff of Zhen (11.0-15.0) % Plt Count (150-400) K/uL MPV (7.40-12.00) fL Neut % (Auto) (48.0-80.0) % Lymph % (Auto) (16.0-40.0) % [place] % (Auto) (0.0-15.0) % Eos % (Auto) (0.0-7.0) % Baso % (Auto) (0.0-1.5) % Neut # (Auto) (1.4-5.7) K/uL Lymph # (Auto) (0.6-2.4) K/uL [place] # (Auto) (0.0-0.8) K/uL Eos # (Auto) (0.0-0.7) K/uL Baso # (Auto) (0.0-0.1) K/uL Nucleated RBC % /100WBC Nucleated RBCs # K/uL INR APTT (18.6-31.3) SEC Sodium (136-148) mmol/L Potassium (3.5-5.1) mmol/L Chloride (98-107) mmol/L Carbon Dioxide (21.0-32.0) mmol/L BUN (7.0-18.0) mg/dL Creatinine (0.8-1.3) mg/dL Est Cr Clr Drug Dosing mL/min Estimated GFR (MDRD) ml/min Glucose (74-106) mg/dL Calcium (8.5-10.1) mg/dL Total Bilirubin (0.2-1.0) mg/dL AST (15-37) IU/L ALT (14-63) IU/L Alkaline Phosphatase (46-116) U/L Troponin I (0.000-0.056) ng/mL Total Protein (6.4-8.2) g/dL Albumin (3.4-5.0) g/dL Globulin (2.6-4.0) g/dL Albumin/Globulin Ratio (0.9-1.6) Ethyl Alcohol mg/dL SARS-CoV-2 RNA (NAILA) NEGATIVE (NEGATIVE) Result Diagrams: 10/18/20 18:20 10/18/20 18:20 Sepsis Event Note - Evaluation Sepsis Screening Result: No Definite Risk - Focused Exam Vital Signs: Vital Signs Temp Pulse Resp BP Pulse Ox 10/18/20 22:45 36.2 C 69 18 129/81 95 10/18/20 22:41 36.1 C 69 18 129/81 95 10/18/20 19:17 36.4 C 111 H 18 101/65 96 - Problem List (1) CVA, old, disturbances of vision SNOMED Code(s): 770321718 ICD Code: I69.398 - OTHER SEQUELAE OF CEREBRAL INFARCTION; H53.9 - UNSPECIFIED VISUAL DISTURBANCE Status: Acute Current Visit: Yes (2) TIA (transient ischemic attack) SNOMED Code(s): 362741110 ICD Code: G45.9 - TRANSIENT CEREBRAL ISCHEMIC ATTACK, UNSPECIFIED Status: Acute Current Visit: Yes (3) Unsteady gait when walking SNOMED Code(s): 93398731 ICD Code: R26.81 - UNSTEADINESS ON FEET Status: Acute Current Visit: Yes Problem List Initiated/Reviewed/Updated: Yes Orders Last 24hrs: Active Orders 24 hr Category Date Time Status Patient Status [ADT] Routine ADT 10/18/20 21:12 Active Ambulate [RC] ASDIRECTED Care 10/18/20 23:53 Active Antiembolic Devices [RC] PER UNIT ROUTINE Care 10/18/20 23:55 Active Assess Neurological Status [RC] ASDIRECTED Care 10/18/20 19:40 Active Bedrest [RC] ASDIRECTED Care 10/18/20 19:40 Active Blood Glucose Check, Bedside [RC] ONETIME Care 10/18/20 19:40 Active Cardiac Monitoring [RC] . DIRECTED Care 10/18/20 19:40 Active Height and Weight [RC] UPON Care 10/18/20 19:40 Active Initiate Acute Stroke Protocol [RC] STAT Care 10/18/20 19:40 Active NIH Stroke Scale [RC] ASDIRECTED Care 10/18/20 19:40 Active Oxygen Therapy [RC] ASDIRECTED Care 10/18/20 19:40 Active Oxygen Therapy [RC] PRN Care 10/18/20 23:53 Active RT Aerosol Therapy [RC] ASDIRECTED Care 10/18/20 23:56 Active Stroke Education, General [RC] Click to Edit Care 10/18/20 19:40 Active Telemetry Monitoring [Cardiac Monitoring] [RC] . Care 10/18/20 23:40 Active DIRECTED VTE/DVT Education [RC] PER UNIT ROUTINE Care 10/18/20 23:53 Active Vital Signs [RC] Q15M Care 10/18/20 19:40 Active Vital Signs [RC] Q4H Care 10/18/20 23:53 Active Heart Healthy Diet [DIET] Diet 10/19/20 Breakfast Active Brain w wo Cont [MR] Routine Exams 10/18/20 23:57 Ordered Echo Comp wo Cont [US] Routine Exams 10/18/20 23:58 Ordered UA W/MICROSCOPIC [URIN] Stat Lab 10/18/20 19:41 Ordered Acetaminophen [TylenoL] Med 10/18/20 23:53 Active 650 mg PO Q4H PRN Albuterol/Ipratropium [DuoNeb 3.0-0.5 MG/3 ML] Med 10/18/20 23:53 Active 3 ml NEB Q4HRRT PRN Ondansetron [Zofran] Med 10/18/20 23:53 Active 4 mg IVPUSH Q4H PRN Pantoprazole [ProTONIX IV] 40 mg Med 10/19/20 09:00 Active Sodium Chloride 0.9% [Normal Saline] 10 ml IV DAILY Sodium Chloride 0.9% [Normal Saline] Med 10/18/20 19:40 Active 10 ml IV ASDIRECTED PRN Sodium Chloride 0.9% [Saline Flush] Med 10/18/20 19:40 Active 10 ml FLUSH ASDIRECTED PRN Sodium Chloride 0.9% [Saline Flush] Med 10/18/20 19:40 Active 2.5 ml FLUSH ASDIRECTED PRN Peripheral IV Insertion Adult [OM.PC] Stat Oth 10/18/20 19:40 Ordered Peripheral IV Insertion Adult [OM.PC] Stat Oth 10/18/20 19:40 Ordered Sequential Compression Device [OM.PC] Per Unit Routine Oth 10/18/20 23:54 Ordered Medication Orders Acetaminophen (Acetaminophen 325 Mg Tab) 650 mg PO Q4H PRN PRN Reason: Pain (Mild 1-3)/fever Albuterol/Ipratropium (Albuterol/Ipratropium 3.0-0.5 Mg/3 Ml Neb Soln) 3 ml NEB Q4HRRT PRN PRN Reason: Shortness Of Breath/wheezing Pantoprazole Sodium 40 mg/ (Sodium Chloride) 10 mls @ 200 mls/hr IV DAILY ANGIE Ondansetron HCl (Ondansetron 4 Mg/2 Ml Sdv) 4 mg IVPUSH Q4H PRN PRN Reason: Nausea/Vomiting Sodium Chloride (Sodium Chloride 0.9% 10 Ml Syringe) 10 ml FLUSH ASDIRECTED PRN PRN Reason: Keep Vein Open Sodium Chloride (Sodium Chloride 0.9% 2.5 Ml Syringe) 2.5 ml FLUSH ASDIRECTED PRN PRN Reason: Keep Vein Open Sodium Chloride (Sodium Chloride 0.9% 10 Ml Sdv) 10 ml IV ASDIRECTED PRN PRN Reason: IV Use Assessment/Plan Comment:: 65-year-old male admitted for concerns of TIA Admit to [facility], monitor on telemetry Resume home meds as appropriate We will start patient on high-dose atorvastatin 80 mg instead of 40 mg 2D echo and MRI of the brain not possible as we do not have that capability over the weekend, patient states that he is at his baseline no need of urgent MRI at this point Resume aspirin and Plavix, I recommended patient to hold off on the cataract surgery for now after the MRI is done and TIAs ruled out History of previous A. fib RVR in context of GI bleed probably discharge patient on nausea back 2D echo outpatient basis Unable to make appointment with neurology over the weekend so we will send a referral and patient follow-up upon outpatient basis We will get PT assess the patient's gait in the morning for further recommendations about physical therapy.
[2020-10-19] MEDS ORDERED: Pantoprazole 40 MG in Sodium Chloride 0.9% 10 ML IV SCH (09:00)
[2020-10-19] MEDS ORDERED: Pantoprazole 40 MG Vial IV SCH (09:00)
--- NOTE | 2020-10-19 09:48 | PCM.PN ---
- Patient Data Vitals - Most Recent: Last Vital Signs Temp 36.4 C 10/19/20 04:00 Pulse 65 10/19/20 04:00 Resp 16 10/19/20 04:00 BP 117/77 10/19/20 04:00 Pulse Ox 90 L 10/19/20 04:00 Weight - Most Recent: 61.87 kg I&O - Last 24 Hours: Intake & Output 10/18/20 10/19/20 10/19/20 22:59 06:59 14:59 Intake Total 0 Balance 0 Lab Results Last 24 Hours: Laboratory Results - last 24 hr 10/18/20 10/18/20 10/18/20 Range/Units 18:20 18:20 18:20 WBC 8.54 (4.0-11.0) K/uL RBC 4.76 (4.50-5.90) M/uL Hgb 14.7 (13.0-17.0) g/dL Hct 43.3 (38.0-50.0) % MCV 91.0 (80.0-98.0) fL MCH 30.9 (27.0-32.0) pg MCHC 33.9 (31.0-37.0) g/dL RDW Std Deviation 43.2 (28.0-62.0) fl RDW Coeff of Zhen 13 (11.0-15.0) % Plt Count 267 (150-400) K/uL MPV 10.60 (7.40-12.00) fL Neut % (Auto) 54.0 (48.0-80.0) % Lymph % (Auto) 27.0 (16.0-40.0) % [place] % (Auto) 10.2 (0.0-15.0) % Eos % (Auto) 7.7 H (0.0-7.0) % Baso % (Auto) 1.1 (0.0-1.5) % Neut # (Auto) 4.6 (1.4-5.7) K/uL Lymph # (Auto) 2.3 (0.6-2.4) K/uL [place] # (Auto) 0.9 H (0.0-0.8) K/uL Eos # (Auto) 0.7 (0.0-0.7) K/uL Baso # (Auto) 0.1 (0.0-0.1) K/uL Nucleated RBC % 0.0 /100WBC Nucleated RBCs # 0 K/uL INR 1.06 APTT 28.9 (18.6-31.3) SEC Sodium 141 (136-148) mmol/L Potassium 3.9 (3.5-5.1) mmol/L Chloride 105 (98-107) mmol/L Carbon Dioxide 28.7 (21.0-32.0) mmol/L BUN 14 (7.0-18.0) mg/dL Creatinine 1.1 (0.8-1.3) mg/dL Est Cr Clr Drug Dosing 58.49 mL/min Estimated GFR (MDRD) > 60.0 ml/min Glucose 117 H (74-106) mg/dL Calcium 8.3 L (8.5-10.1) mg/dL Total Bilirubin 0.3 (0.2-1.0) mg/dL AST 25 (15-37) IU/L ALT 28 (14-63) IU/L Alkaline Phosphatase 129 H (46-116) U/L Troponin I < 0.050 (0.000-0.056) ng/mL Total Protein 6.7 (6.4-8.2) g/dL Albumin 3.3 L (3.4-5.0) g/dL Globulin 3.4 (2.6-4.0) g/dL Albumin/Globulin Ratio 1.0 (0.9-1.6) Urine Color Urine Appearance Urine pH (5.0-8.0) Ur Specific [place] (1.001-1.035) Urine Protein (NEGATIVE) mg/dL Urine Glucose (UA) (NEGATIVE) mg/dL Urine Ketones (NEGATIVE) mg/dL Urine Occult Blood (NEGATIVE) Urine Nitrite (NEGATIVE) Urine Bilirubin (NEGATIVE) Urine Urobilinogen (<2.0) EU/dL Ur Leukocyte Esterase (NEGATIVE) Urine RBC (0-2/HPF) Urine WBC (0-5/HPF) Ur Epithelial Cells (NONE-FEW) Urine Bacteria (NEGATIVE) Ethyl Alcohol < 3.0 mg/dL SARS-CoV-2 RNA (NAILA) (NEGATIVE) 10/18/20 10/19/20 Range/Units 21:20 06:10 WBC (4.0-11.0) K/uL RBC (4.50-5.90) M/uL Hgb (13.0-17.0) g/dL Hct (38.0-50.0) % MCV (80.0-98.0) fL MCH (27.0-32.0) pg MCHC (31.0-37.0) g/dL RDW Std Deviation (28.0-62.0) fl RDW Coeff of Zhen (11.0-15.0) % Plt Count (150-400) K/uL MPV (7.40-12.00) fL Neut % (Auto) (48.0-80.0) % Lymph % (Auto) (16.0-40.0) % [place] % (Auto) (0.0-15.0) % Eos % (Auto) (0.0-7.0) % Baso % (Auto) (0.0-1.5) % Neut # (Auto) (1.4-5.7) K/uL Lymph # (Auto) (0.6-2.4) K/uL [place] # (Auto) (0.0-0.8) K/uL Eos # (Auto) (0.0-0.7) K/uL Baso # (Auto) (0.0-0.1) K/uL Nucleated RBC % /100WBC Nucleated RBCs # K/uL INR APTT (18.6-31.3) SEC Sodium (136-148) mmol/L Potassium (3.5-5.1) mmol/L Chloride (98-107) mmol/L Carbon Dioxide (21.0-32.0) mmol/L BUN (7.0-18.0) mg/dL Creatinine (0.8-1.3) mg/dL Est Cr Clr Drug Dosing mL/min Estimated GFR (MDRD) ml/min Glucose (74-106) mg/dL Calcium (8.5-10.1) mg/dL Total Bilirubin (0.2-1.0) mg/dL AST (15-37) IU/L ALT (14-63) IU/L Alkaline Phosphatase (46-116) U/L Troponin I (0.000-0.056) ng/mL Total Protein (6.4-8.2) g/dL Albumin (3.4-5.0) g/dL Globulin (2.6-4.0) g/dL Albumin/Globulin Ratio (0.9-1.6) Urine Color YELLOW Urine Appearance CLEAR Urine pH 6.0 (5.0-8.0) Ur Specific [place] 1.010 (1.001-1.035) Urine Protein NEGATIVE (NEGATIVE) mg/dL Urine Glucose (UA) NEGATIVE (NEGATIVE) mg/dL Urine Ketones TRACE H (NEGATIVE) mg/dL Urine Occult Blood NEGATIVE (NEGATIVE) Urine Nitrite NEGATIVE (NEGATIVE) Urine Bilirubin NEGATIVE (NEGATIVE) Urine Urobilinogen 0.2 (<2.0) EU/dL Ur Leukocyte Esterase NEGATIVE (NEGATIVE) Urine RBC 0-1 (0-2/HPF) Urine WBC 0-1 (0-5/HPF) Ur Epithelial Cells RARE (NONE-FEW) Urine Bacteria FEW (NEGATIVE) Ethyl Alcohol mg/dL SARS-CoV-2 RNA (NAILA) NEGATIVE (NEGATIVE) Med Orders - Current: Current Medications Acetaminophen (Acetaminophen 325 Mg Tab) 650 mg PO Q4H PRN PRN Reason: Pain (Mild 1-3)/fever Albuterol/Ipratropium (Albuterol/Ipratropium 3.0-0.5 Mg/3 Ml Neb Soln) 3 ml NEB Q4HRRT PRN PRN Reason: Shortness Of Breath/wheezing Pantoprazole Sodium 40 mg/ (Sodium Chloride) 10 mls @ 200 mls/hr IV DAILY ANGIE Last Admin: 10/19/20 09:22 Dose: 200 mls/hr Documented by: Ondansetron HCl (Ondansetron 4 Mg/2 Ml Sdv) 4 mg IVPUSH Q4H PRN PRN Reason: Nausea/Vomiting Sodium Chloride (Sodium Chloride 0.9% 10 Ml Syringe) 10 ml FLUSH ASDIRECTED PRN PRN Reason: Keep Vein Open Sodium Chloride (Sodium Chloride 0.9% 2.5 Ml Syringe) 2.5 ml FLUSH ASDIRECTED PRN PRN Reason: Keep Vein Open Sodium Chloride (Sodium Chloride 0.9% 10 Ml Sdv) 10 ml IV ASDIRECTED PRN PRN Reason: IV Use Discontinued Medications Iopamidol (Iopamidol 755 Mg/Ml 500 Ml Multipack Bottle) 100 ml IVPUSH ONETIME STA Stop: 10/18/20 20:28 Last Admin: 10/18/20 20:27 Dose: 100 ml Documented by: - Patient Data Lab Results Last 24 hrs: Laboratory Results - last 24 hr 10/18/20 10/18/20 10/18/20 Range/Units 18:20 18:20 18:20 WBC 8.54 (4.0-11.0) K/uL RBC 4.76 (4.50-5.90) M/uL Hgb 14.7 (13.0-17.0) g/dL Hct 43.3 (38.0-50.0) % MCV 91.0 (80.0-98.0) fL MCH 30.9 (27.0-32.0) pg MCHC 33.9 (31.0-37.0) g/dL RDW Std Deviation 43.2 (28.0-62.0) fl RDW Coeff of Zhen 13 (11.0-15.0) % Plt Count 267 (150-400) K/uL MPV 10.60 (7.40-12.00) fL Neut % (Auto) 54.0 (48.0-80.0) % Lymph % (Auto) 27.0 (16.0-40.0) % [place] % (Auto) 10.2 (0.0-15.0) % Eos % (Auto) 7.7 H (0.0-7.0) % Baso % (Auto) 1.1 (0.0-1.5) % Neut # (Auto) 4.6 (1.4-5.7) K/uL Lymph # (Auto) 2.3 (0.6-2.4) K/uL [place] # (Auto) 0.9 H (0.0-0.8) K/uL Eos # (Auto) 0.7 (0.0-0.7) K/uL Baso # (Auto) 0.1 (0.0-0.1) K/uL Nucleated RBC % 0.0 /100WBC Nucleated RBCs # 0 K/uL INR 1.06 APTT 28.9 (18.6-31.3) SEC Sodium 141 (136-148) mmol/L Potassium 3.9 (3.5-5.1) mmol/L Chloride 105 (98-107) mmol/L Carbon Dioxide 28.7 (21.0-32.0) mmol/L BUN 14 (7.0-18.0) mg/dL Creatinine 1.1 (0.8-1.3) mg/dL Est Cr Clr Drug Dosing 58.49 mL/min Estimated GFR (MDRD) > 60.0 ml/min Glucose 117 H (74-106) mg/dL Calcium 8.3 L (8.5-10.1) mg/dL Total Bilirubin 0.3 (0.2-1.0) mg/dL AST 25 (15-37) IU/L ALT 28 (14-63) IU/L Alkaline Phosphatase 129 H (46-116) U/L Troponin I < 0.050 (0.000-0.056) ng/mL Total Protein 6.7 (6.4-8.2) g/dL Albumin 3.3 L (3.4-5.0) g/dL Globulin 3.4 (2.6-4.0) g/dL Albumin/Globulin Ratio 1.0 (0.9-1.6) Urine Color Urine Appearance Urine pH (5.0-8.0) Ur Specific [place] (1.001-1.035) Urine Protein (NEGATIVE) mg/dL Urine Glucose (UA) (NEGATIVE) mg/dL Urine Ketones (NEGATIVE) mg/dL Urine Occult Blood (NEGATIVE) Urine Nitrite (NEGATIVE) Urine Bilirubin (NEGATIVE) Urine Urobilinogen (<2.0) EU/dL Ur Leukocyte Esterase (NEGATIVE) Urine RBC (0-2/HPF) Urine WBC (0-5/HPF) Ur Epithelial Cells (NONE-FEW) Urine Bacteria (NEGATIVE) Ethyl Alcohol < 3.0 mg/dL SARS-CoV-2 RNA (NAILA) (NEGATIVE) 10/18/20 10/19/20 Range/Units 21:20 06:10 WBC (4.0-11.0) K/uL RBC (4.50-5.90) M/uL Hgb (13.0-17.0) g/dL Hct (38.0-50.0) % MCV (80.0-98.0) fL MCH (27.0-32.0) pg MCHC (31.0-37.0) g/dL RDW Std Deviation (28.0-62.0) fl RDW Coeff of Zhen (11.0-15.0) % Plt Count (150-400) K/uL MPV (7.40-12.00) fL Neut % (Auto) (48.0-80.0) % Lymph % (Auto) (16.0-40.0) % [place] % (Auto) (0.0-15.0) % Eos % (Auto) (0.0-7.0) % Baso % (Auto) (0.0-1.5) % Neut # (Auto) (1.4-5.7) K/uL Lymph # (Auto) (0.6-2.4) K/uL [place] # (Auto) (0.0-0.8) K/uL Eos # (Auto) (0.0-0.7) K/uL Baso # (Auto) (0.0-0.1) K/uL Nucleated RBC % /100WBC Nucleated RBCs # K/uL INR APTT (18.6-31.3) SEC Sodium (136-148) mmol/L Potassium (3.5-5.1) mmol/L Chloride (98-107) mmol/L Carbon Dioxide (21.0-32.0) mmol/L BUN (7.0-18.0) mg/dL Creatinine (0.8-1.3) mg/dL Est Cr Clr Drug Dosing mL/min Estimated GFR (MDRD) ml/min Glucose (74-106) mg/dL Calcium (8.5-10.1) mg/dL Total Bilirubin (0.2-1.0) mg/dL AST (15-37) IU/L ALT (14-63) IU/L Alkaline Phosphatase (46-116) U/L Troponin I (0.000-0.056) ng/mL Total Protein (6.4-8.2) g/dL Albumin (3.4-5.0) g/dL Globulin (2.6-4.0) g/dL Albumin/Globulin Ratio (0.9-1.6) Urine Color YELLOW Urine Appearance CLEAR Urine pH 6.0 (5.0-8.0) Ur Specific [place] 1.010 (1.001-1.035) Urine Protein NEGATIVE (NEGATIVE) mg/dL Urine Glucose (UA) NEGATIVE (NEGATIVE) mg/dL Urine Ketones TRACE H (NEGATIVE) mg/dL Urine Occult Blood NEGATIVE (NEGATIVE) Urine Nitrite NEGATIVE (NEGATIVE) Urine Bilirubin NEGATIVE (NEGATIVE) Urine Urobilinogen 0.2 (<2.0) EU/dL Ur Leukocyte Esterase NEGATIVE (NEGATIVE) Urine RBC 0-1 (0-2/HPF) Urine WBC 0-1 (0-5/HPF) Ur Epithelial Cells RARE (NONE-FEW) Urine Bacteria FEW (NEGATIVE) Ethyl Alcohol mg/dL SARS-CoV-2 RNA (NAILA) NEGATIVE (NEGATIVE) Result Diagrams: 10/18/20 18:20 10/18/20 18:20 Sepsis Event Note - Evaluation Sepsis Screening Result: No Definite Risk - Focused Exam Vital Signs: Vital Signs Temp Pulse Resp BP Pulse Ox 10/19/20 04:00 36.4 C 65 16 117/77 90 L 10/18/20 22:45 36.2 C 69 18 129/81 95 10/18/20 22:41 36.1 C 69 18 129/81 95 - My Orders Last 24 Hours: My Active Orders 10/18/20 23:40 Telemetry Monitoring [Cardiac Monitoring] [RC] Q8H 10/18/20 23:53 Ambulate [RC] ASDIRECTED Oxygen Therapy [RC] PRN VTE/DVT Education [RC] PER UNIT ROUTINE Vital Signs [RC] Q4H Acetaminophen [TylenoL] 650 mg PO Q4H PRN Albuterol/Ipratropium [DuoNeb 3.0-0.5 MG/3 ML] 3 ml NEB Q4HRRT PRN Ondansetron [Zofran] 4 mg IVPUSH Q4H PRN 10/18/20 23:54 Sequential Compression Device [OM.PC] Per Unit Routine 10/18/20 23:55 Antiembolic Devices [RC] PER UNIT ROUTINE 10/18/20 23:56 RT Aerosol Therapy [RC] ASDIRECTED 10/18/20 23:57 Brain w wo Cont [MR] Routine 10/18/20 23:58 Echo Comp wo Cont [US] Routine 10/19/20 Breakfast Heart Healthy Diet [DIET] 10/19/20 09:00 Pantoprazole [ProTONIX IV] 40 mg Sodium Chloride 0.9% [Normal Saline] 10 ml IV DAILY
[2020-10-19] MEDS ORDERED: Carvedilol 3.125 MG Tab PO SCH (10:00)
[2020-10-19] MEDS ORDERED: Cholecalciferol (Vitamin D3) 25 MCG Tab PO SCH (10:00)
[2020-10-19] MEDS ORDERED: Pantoprazole 40 MG Tab.CR PO SCH (10:00)
[2020-10-19] MEDS ORDERED: Clopidogrel 75 MG Tab PO SCH (10:00)
[2020-10-19] MEDS ORDERED: Aspirin 81 MG Tab.Chew PO SCH (10:00)
[2020-10-19] MEDS ORDERED: atorvaSTATin 40 MG Tab PO ONE (10:48)
--- NOTE | 2020-10-19 12:09 | PCM.DCSUM1 ---
Discharge Summary - Discharge Data Discharge Disposition: Home, Self-Care 01 Condition: Fair - Referral to Home Health Primary Care Physician: Nilton David MD - Patient Summary/Data Consults: Consultations 10/19/20 09:51 Consult to Physical Therapy [PT Evaluation and Treatment] [CONS] Routine - Discharge Plan Home Medications: Home Meds Clopidogrel [Plavix] 75 mg PO DAILY 07/06/15 [History] amLODIPine [Norvasc] 5 mg PO DAILY 07/06/15 [History] lisinopriL [Zestril] 10 mg PO DAILY 07/06/15 [History] Nitroglycerin 0.4 mg SL ASDIRECTED 09/13/18 [History] atorvaSTATin Calcium [Atorvastatin Calcium] 40 mg PO BEDTIME 09/13/18 [History] carvediloL [Carvedilol] 3.125 mg PO BID 09/13/18 [History] Aspirin 81 mg PO DAILY 10/18/20 [History] Pantoprazole [ProTONIX] 40 mg PO DAILY 10/18/20 [History] Vitamin E (Dl,Tocopheryl Acet) [Vitamin E] 180 mg PO DAILY 10/18/20 [History] Zinc 50 mg pe PO DAILY 10/18/20 [History] Cholecalciferol (Vitamin D3) [Vitamin D3] 1,000 unit PO DAILY 10/19/20 [History] Iron 65 mg PO DAILY 10/19/20 [History] Magnesium Citrate 100 mg PO BID 10/19/20 [History] Multivitamin [Multi-Vitamin Daily] 1 each PO DAILY 10/19/20 [History] Referrals: Nilton David MD [Primary Care Provider] - - Patient Data Vitals - Most Recent: Last Vital Signs Temp 36.9 C 10/19/20 08:00 Pulse 68 10/19/20 10:50 Resp 22 H 10/19/20 08:00 BP 120/71 10/19/20 10:50 Pulse Ox 91 L 10/19/20 08:00 Weight - Most Recent: 61.87 kg I&O - Last 24 hours: Intake & Output 10/18/20 10/19/20 10/19/20 22:59 06:59 14:59 Intake Total 0 Balance 0 Lab Results - Last 24 hrs: Laboratory Results - last 24 hr 10/18/20 10/18/20 10/18/20 Range/Units 18:20 18:20 18:20 WBC 8.54 (4.0-11.0) K/uL RBC 4.76 (4.50-5.90) M/uL Hgb 14.7 (13.0-17.0) g/dL Hct 43.3 (38.0-50.0) % MCV 91.0 (80.0-98.0) fL MCH 30.9 (27.0-32.0) pg MCHC 33.9 (31.0-37.0) g/dL RDW Std Deviation 43.2 (28.0-62.0) fl RDW Coeff of Zhen 13 (11.0-15.0) % Plt Count 267 (150-400) K/uL MPV 10.60 (7.40-12.00) fL Neut % (Auto) 54.0 (48.0-80.0) % Lymph % (Auto) 27.0 (16.0-40.0) % [place] % (Auto) 10.2 (0.0-15.0) % Eos % (Auto) 7.7 H (0.0-7.0) % Baso % (Auto) 1.1 (0.0-1.5) % Neut # (Auto) 4.6 (1.4-5.7) K/uL Lymph # (Auto) 2.3 (0.6-2.4) K/uL [place] # (Auto) 0.9 H (0.0-0.8) K/uL Eos # (Auto) 0.7 (0.0-0.7) K/uL Baso # (Auto) 0.1 (0.0-0.1) K/uL Nucleated RBC % 0.0 /100WBC Nucleated RBCs # 0 K/uL INR 1.06 APTT 28.9 (18.6-31.3) SEC Sodium 141 (136-148) mmol/L Potassium 3.9 (3.5-5.1) mmol/L Chloride 105 (98-107) mmol/L Carbon Dioxide 28.7 (21.0-32.0) mmol/L BUN 14 (7.0-18.0) mg/dL Creatinine 1.1 (0.8-1.3) mg/dL Est Cr Clr Drug Dosing 58.49 mL/min Estimated GFR (MDRD) > 60.0 ml/min Glucose 117 H (74-106) mg/dL Calcium 8.3 L (8.5-10.1) mg/dL Total Bilirubin 0.3 (0.2-1.0) mg/dL AST 25 (15-37) IU/L ALT 28 (14-63) IU/L Alkaline Phosphatase 129 H (46-116) U/L Troponin I < 0.050 (0.000-0.056) ng/mL Total Protein 6.7 (6.4-8.2) g/dL Albumin 3.3 L (3.4-5.0) g/dL Globulin 3.4 (2.6-4.0) g/dL Albumin/Globulin Ratio 1.0 (0.9-1.6) Urine Color Urine Appearance Urine pH (5.0-8.0) Ur Specific [place] (1.001-1.035) Urine Protein (NEGATIVE) mg/dL Urine Glucose (UA) (NEGATIVE) mg/dL Urine Ketones (NEGATIVE) mg/dL Urine Occult Blood (NEGATIVE) Urine Nitrite (NEGATIVE) Urine Bilirubin (NEGATIVE) Urine Urobilinogen (<2.0) EU/dL Ur Leukocyte Esterase (NEGATIVE) Urine RBC (0-2/HPF) Urine WBC (0-5/HPF) Ur Epithelial Cells (NONE-FEW) Urine Bacteria (NEGATIVE) Ethyl Alcohol < 3.0 mg/dL SARS-CoV-2 RNA (NAILA) (NEGATIVE) 10/18/20 10/19/20 Range/Units 21:20 06:10 WBC (4.0-11.0) K/uL RBC (4.50-5.90) M/uL Hgb (13.0-17.0) g/dL Hct (38.0-50.0) % MCV (80.0-98.0) fL MCH (27.0-32.0) pg MCHC (31.0-37.0) g/dL RDW Std Deviation (28.0-62.0) fl RDW Coeff of Zhen (11.0-15.0) % Plt Count (150-400) K/uL MPV (7.40-12.00) fL Neut % (Auto) (48.0-80.0) % Lymph % (Auto) (16.0-40.0) % [place] % (Auto) (0.0-15.0) % Eos % (Auto) (0.0-7.0) % Baso % (Auto) (0.0-1.5) % Neut # (Auto) (1.4-5.7) K/uL Lymph # (Auto) (0.6-2.4) K/uL [place] # (Auto) (0.0-0.8) K/uL Eos # (Auto) (0.0-0.7) K/uL Baso # (Auto) (0.0-0.1) K/uL Nucleated RBC % /100WBC Nucleated RBCs # K/uL INR APTT (18.6-31.3) SEC Sodium (136-148) mmol/L Potassium (3.5-5.1) mmol/L Chloride (98-107) mmol/L Carbon Dioxide (21.0-32.0) mmol/L BUN (7.0-18.0) mg/dL Creatinine (0.8-1.3) mg/dL Est Cr Clr Drug Dosing mL/min Estimated GFR (MDRD) ml/min Glucose (74-106) mg/dL Calcium (8.5-10.1) mg/dL Total Bilirubin (0.2-1.0) mg/dL AST (15-37) IU/L ALT (14-63) IU/L Alkaline Phosphatase (46-116) U/L Troponin I (0.000-0.056) ng/mL Total Protein (6.4-8.2) g/dL Albumin (3.4-5.0) g/dL Globulin (2.6-4.0) g/dL Albumin/Globulin Ratio (0.9-1.6) Urine Color YELLOW Urine Appearance CLEAR Urine pH 6.0 (5.0-8.0) Ur Specific [place] 1.010 (1.001-1.035) Urine Protein NEGATIVE (NEGATIVE) mg/dL Urine Glucose (UA) NEGATIVE (NEGATIVE) mg/dL Urine Ketones TRACE H (NEGATIVE) mg/dL Urine Occult Blood NEGATIVE (NEGATIVE) Urine Nitrite NEGATIVE (NEGATIVE) Urine Bilirubin NEGATIVE (NEGATIVE) Urine Urobilinogen 0.2 (<2.0) EU/dL Ur Leukocyte Esterase NEGATIVE (NEGATIVE) Urine RBC 0-1 (0-2/HPF) Urine WBC 0-1 (0-5/HPF) Ur Epithelial Cells RARE (NONE-FEW) Urine Bacteria FEW (NEGATIVE) Ethyl Alcohol mg/dL SARS-CoV-2 RNA (NAILA) NEGATIVE (NEGATIVE) Med Orders - Current: Current Medications Acetaminophen (Acetaminophen 325 Mg Tab) 650 mg PO Q4H PRN PRN Reason: Pain (Mild 1-3)/fever Albuterol/Ipratropium (Albuterol/Ipratropium 3.0-0.5 Mg/3 Ml Neb Soln) 3 ml NEB Q4HRRT PRN PRN Reason: Shortness Of Breath/wheezing Aspirin (Aspirin 81 Mg Tab.Chew) 81 mg PO DAILY [facility] Last Admin: 10/19/20 10:49 Dose: 81 mg Documented by: Carvedilol (Carvedilol 3.125 Mg Tab) 3.125 mg PO BID [facility] Last Admin: 10/19/20 10:50 Dose: 3.125 mg Documented by: Cholecalciferol (Cholecalciferol (Vitamin D3) 25 Mcg Tab) 25 mcg PO DAILY [facility] Last Admin: 10/19/20 10:49 Dose: 25 mcg Documented by: Clopidogrel Bisulfate (Clopidogrel 75 Mg Tab) 75 mg PO DAILY [facility] Last Admin: 10/19/20 10:50 Dose: 75 mg Documented by: Pantoprazole Sodium 40 mg/ (Sodium Chloride) 10 mls @ 200 mls/hr IV DAILY [facility] Last Admin: 10/19/20 09:22 Dose: 200 mls/hr Documented by: Ondansetron HCl (Ondansetron 4 Mg/2 Ml Sdv) 4 mg IVPUSH Q4H PRN PRN Reason: Nausea/Vomiting Pantoprazole Sodium (Pantoprazole 40 Mg Tab.Cr) 40 mg PO ACBREAKFAST [facility] Last Admin: 10/19/20 10:04 Dose: Not Given Documented by: Sodium Chloride (Sodium Chloride 0.9% 10 Ml Syringe) 10 ml FLUSH ASDIRECTED PRN PRN Reason: Keep Vein Open Sodium Chloride (Sodium Chloride 0.9% 2.5 Ml Syringe) 2.5 ml FLUSH ASDIRECTED PRN PRN Reason: Keep Vein Open Sodium Chloride (Sodium Chloride 0.9% 10 Ml Sdv) 10 ml IV ASDIRECTED PRN PRN Reason: IV Use Discontinued Medications Atorvastatin Calcium (Atorvastatin 40 Mg Tab) 40 mg PO BEDTIME ANGIE Atorvastatin Calcium (Atorvastatin 40 Mg Tab) 80 mg PO ONETIME ONE Stop: 10/19/20 10:49 Last Admin: 10/19/20 11:24 Dose: 80 mg Documented by: Iopamidol (Iopamidol 755 Mg/Ml 500 Ml Multipack Bottle) 100 ml IVPUSH ONETIME STA Stop: 10/18/20 20:28 Last Admin: 10/18/20 20:27 Dose: 100 ml Documented by:
[2020-10-19 12:37] VITALS: BP 121/89; PULSE 62
[2020-10-19] MEDS ORDERED: Magnesium Sulfate/Water 2 GM in Premix Bag 1 BAG IV ONE (14:32)
[2020-10-19 14:48] LABS: BLOOD UREA NITROGEN,BUN 12 mg/dL (7.0-18.0); CARBON DIOXIDE,CO2 28.1 mmol/L (21.0-32.0); CHLORIDE,CL 105 mmol/L (98-107); GLUCOSE RANDOM 73 mg/dL (74-106); POTASSIUM,K 3.8 mmol/L (3.5-5.1); SODIUM,NA 140 mmol/L (136-148)
[2020-10-19] MEDS ORDERED: Magnesium Oxide 400 MG Tab PO ONE (14:50)
[2020-10-19] MEDS ORDERED: atorvaSTATin 40 MG Tab PO SCH (21:00)
== END 2020-10-19 15:45 | disposition home or self-care (01) ==
LOC: MW.ED 18:14 → MW.MS 21:12
PROVIDERS: ADMIT Student in an Organized Health Care Education/Training Program; ATTEND Student in an Organized Health Care Education/Training Program
DX: G45.9 Transient cerebral ischemic attack, unspecified (principal); I69.398 Other sequelae of cerebral infarction; H53.8 Other visual disturbances; J44.9 Chronic obstructive pulmonary disease, unspecified; I10 Essential (primary) hypertension; E78.00 Pure hypercholesterolemia, unspecified; F17.210 Nicotine dependence, cigarettes, uncomplicated; Z20.822 Contact with and (suspected) exposure to COVID-19; Z79.01 Long term (current) use of anticoagulants; Z79.82 Long term (current) use of aspirin; Z88.0 Allergy status to penicillin; Z88.6 Allergy status to analgesic agent
CPT/HCPCS: 36415; 70450; 70496; 70498; 71045; 80048; 80053; 80061; 80307; 81001; 83036; 83735; 84100; 84443; 84484; 85025; 85610; 85730; 87635; 93005; 97161; 99285; A9270; C9113; Q9967; U0002

== ENCOUNTER 2022-10-26 13:10 | Inpatient (IN) | payer BC, MEDICARE ==
[2022-10-26] MEDS ORDERED: Albuterol/Ipratropium 3.0-0.5 MG/3 ML Neb Soln NEB ONE (13:17)
[2022-10-26] MEDS ORDERED: methylPREDNISolone Sodium Succinate 125 MG/2 ML SDV IVPUSH ONE (13:17)
[2022-10-26] MEDS ORDERED: Albuterol/Ipratropium 3.0-0.5 MG/3 ML Neb Soln ONE (13:17)
[2022-10-26] MEDS ORDERED: Albuterol 0.083% 2.5 MG/3 ML Neb Soln INH ONE (13:17)
[2022-10-26] MEDS ORDERED: Albuterol 0.083% 2.5 MG/3 ML Neb Soln ONE (13:19)
[2022-10-26] MEDS ORDERED: Magnesium Sulfate/Water 2 GM in Premix Bag 1 BAG IV ONE (13:20)
[2022-10-26 13:51] LABS: BASE EXCESS VENOUS 2.6 (-2.0-3.0); BASOPHILS ABSOLUTE AUTO 0.1 K/uL (0.0-0.1); BASOPHILS PERCENT AUTO 1.2 % (0.0-1.5); BICARBONATE,VENOUS 31 mEq/L (23-28); EOSINOPHILS ABSOLUTE AUTO 0.5 K/uL (0.0-0.7); EOSINOPHILS PERCENT AUTO 4.2 % (0.0-7.0); HEMATOCRIT 40.4 % (38.0-50.0); HEMOGLOBIN 13.2 g/dL (13.0-17.0); LYMPHOCYTES ABSOLUTE AUTO 1.4 K/uL (0.6-2.4); LYMPHOCYTES PERCENT AUTO 12.1 % (16.0-40.0); MEAN CORPUSCULAR HEMOGLOBIN 31.5 pg (27.0-32.0); MEAN CORPUSCULAR HGB CONC 32.7 g/dL (31.0-37.0); MEAN CORPUSCULAR VOLUME 96.4 fL (80.0-98.0); MONOCYTES ABSOLUTE AUTO 1.1 K/uL (0.0-0.8); MONOCYTES PERCENT AUTO 8.8 % (0.0-15.0); NEUTROPHILS ABSOLUTE AUTO 8.8 K/uL (1.4-5.7); NEUTROPHILS PERCENT AUTO 73.7 % (48.0-80.0); NRBC ABSOLUTE 0 K/uL; PCO2 VENOUS 68 mmHG (41-51); PH,VENOUS 7.27 (7.31-7.41); PLATELET COUNT,PLT 245 K/uL (150-400); RED BLOOD CELL COUNT 4.19 M/uL (4.50-5.90); WHITE BLOOD CELL COUNT,WBC 11.95 K/uL (4.0-11.0)
[2022-10-26 13:53] LABS: PO2 VENOUS < 30 mmHG
[2022-10-26 14:32] LABS: ALBUMIN 3.5 g/dL (3.4-5.0); BILIRUBIN TOTAL 0.7 mg/dL (0.2-1.0); CALCIUM 8.7 mg/dL (8.5-10.1); CARBON DIOXIDE,CO2 30.5 mmol/L (21.0-32.0); CREATININE 1.3 mg/dL (0.8-1.3); EST CRCL DRUG DOSING (CG) 48.85 mL/min; PROTEIN TOTAL,TP 6.9 g/dL (6.4-8.2)
[2022-10-26] MEDS ORDERED: Sodium Chloride 0.9% 1,000 ML IV ONE (14:56)
[2022-10-26 15:01] LABS: BASE EXCESS VENOUS 4.3 (-2.0-3.0); BICARBONATE,VENOUS 32 mEq/L (23-28); PCO2 VENOUS 59 mmHG (41-51); PH,VENOUS 7.34 (7.31-7.41)
[2022-10-26 15:05] LABS: APPEARANCE,URINE CLEAR; BILIRUBIN,URINE NEGATIVE (NEGATIVE); COLOR,URINE YELLOW; GLUCOSE,URINE NEGATIVE (NEGATIVE); KETONES,URINE 15 mg/dL (NEGATIVE); LEUKOCYTE ESTERASE,URINE NEGATIVE (NEGATIVE); NITRITE,URINE NEGATIVE (NEGATIVE); OCCULT BLOOD,URINE NEGATIVE (NEGATIVE); PH,URINE 6.5 (5.0-8.0); PROTEIN,URINE NEGATIVE (NEGATIVE); UROBILINOGEN,URINE 0.2 EU/dL (<2.0)
[2022-10-26 15:08] LABS: PO2 VENOUS < 30 mmHG
[2022-10-26] MEDS ORDERED: Iopamidol 755 MG/ML 500 ML Multipack Bottle IVPUSH STA (15:34)
[2022-10-26] MEDS ORDERED: Lisinopril 10 MG Tab PO SCH (18:45)
[2022-10-26] MEDS ORDERED: Carvedilol 25 MG Tab PO SCH (21:00)
[2022-10-26] MEDS ORDERED: Enoxaparin 40 MG/0.4 ML Syringe SUBCUT SCH (21:00)
[2022-10-26] MEDS ORDERED: atorvaSTATin 40 MG Tab PO SCH (21:00)
[2022-10-26] MEDS: atorvaSTATin 40 MG Tab PO SCH (22:01)
[2022-10-26] MEDS: Carvedilol 25 MG Tab PO SCH (22:01)
[2022-10-26] MEDS: Furosemide 20 MG/2 ML VIAL IVPUSH SCH (22:02)
[2022-10-26] MEDS: Apixaban 5 MG Tab PO SCH (22:02)
[2022-10-26] MEDS: Albuterol/Ipratropium 3.0-0.5 MG/3 ML Neb Soln NEB SCH (22:02)
[2022-10-27] MEDS: Albuterol/Ipratropium 3.0-0.5 MG/3 ML Neb Soln NEB SCH ×3 (03:21→11:00)
[2022-10-27 05:32] LABS: BASOPHILS PERCENT AUTO 0.1 % (0.0-1.5); HEMATOCRIT 37.4 % (38.0-50.0); HEMOGLOBIN 12.5 g/dL (13.0-17.0); LYMPHOCYTES ABSOLUTE AUTO 0.7 K/uL (0.6-2.4); LYMPHOCYTES PERCENT AUTO 7.2 % (16.0-40.0); MEAN CORPUSCULAR HEMOGLOBIN 31.4 pg (27.0-32.0); MEAN CORPUSCULAR HGB CONC 33.4 g/dL (31.0-37.0); MONOCYTES ABSOLUTE AUTO 0.4 K/uL (0.0-0.8); MONOCYTES PERCENT AUTO 3.8 % (0.0-15.0); NEUTROPHILS PERCENT AUTO 88.9 % (48.0-80.0); NRBC ABSOLUTE 0 K/uL; PLATELET COUNT,PLT 224 K/uL (150-400); RED BLOOD CELL COUNT 3.98 M/uL (4.50-5.90); WHITE BLOOD CELL COUNT,WBC 10.17 K/uL (4.0-11.0)
[2022-10-27 05:54] LABS: A/G RATIO 0.9 (0.9-1.6); BILIRUBIN TOTAL 0.6 mg/dL (0.2-1.0); CALCIUM 8.4 mg/dL (8.5-10.1); CARBON DIOXIDE,CO2 27.9 mmol/L (21.0-32.0); CREATININE 1.2 mg/dL (0.8-1.3); EST CRCL DRUG DOSING (CG) 56.02 mL/min; MAGNESIUM 1.9 mg/dL (1.8-2.4); PROTEIN TOTAL,TP 6.3 g/dL (6.4-8.2)
[2022-10-27] MEDS: Furosemide 20 MG/2 ML VIAL IVPUSH SCH (08:21)
[2022-10-27] MEDS ORDERED: Clopidogrel 75 MG Tab PO SCH (09:00)
[2022-10-27] MEDS ORDERED: Lisinopril 10 MG Tab PO SCH (09:00)
[2022-10-27] MEDS ORDERED: Albuterol/Ipratropium 3.0-0.5 MG/3 ML Neb Soln NEB PRN (10:13)
[2022-10-27] MEDS: Carvedilol 25 MG Tab PO SCH ×2 (10:45→20:25)
[2022-10-27] MEDS: Apixaban 5 MG Tab PO SCH ×2 (10:46→20:25)
[2022-10-27] MEDS: Spironolactone 25 MG Tab PO SCH (10:48)
[2022-10-27] MEDS: Aspirin 81 MG Tab.Chew PO SCH (10:48)
[2022-10-27] MEDS: Multivitamin Tab PO SCH (10:49)
[2022-10-27] MEDS: Lisinopril 10 MG Tab PO SCH (10:49)
[2022-10-27] MEDS: Pantoprazole 40 MG Tab.CR PO SCH (10:50)
[2022-10-27] MEDS: ZINC 50 MG PO SCH (10:52)
[2022-10-27] MEDS: IRON 65 MG PO SCH (10:53)
[2022-10-27] MEDS: methylPREDNISolone Sodium Succinate 40 MG/1 ML SDV IVPUSH SCH (12:45)
[2022-10-27] MEDS: atorvaSTATin 40 MG Tab PO SCH (20:26)
[2022-10-28] MEDS: methylPREDNISolone Sodium Succinate 40 MG/1 ML SDV IVPUSH SCH (00:06)
[2022-10-28 06:01] LABS: BASOPHILS PERCENT AUTO 0.1 % (0.0-1.5); EOSINOPHILS PERCENT AUTO 0.1 % (0.0-7.0); HEMOGLOBIN 12.6 g/dL (13.0-17.0); LYMPHOCYTES ABSOLUTE AUTO 0.7 K/uL (0.6-2.4); LYMPHOCYTES PERCENT AUTO 4.2 % (16.0-40.0); MEAN CORPUSCULAR HEMOGLOBIN 31.4 pg (27.0-32.0); MEAN CORPUSCULAR HGB CONC 33.2 g/dL (31.0-37.0); MEAN CORPUSCULAR VOLUME 94.8 fL (80.0-98.0); MONOCYTES ABSOLUTE AUTO 0.3 K/uL (0.0-0.8); MONOCYTES PERCENT AUTO 2.2 % (0.0-15.0); NEUTROPHILS ABSOLUTE AUTO 14.5 K/uL (1.4-5.7); NEUTROPHILS PERCENT AUTO 93.4 % (48.0-80.0); NRBC ABSOLUTE 0 K/uL; PLATELET COUNT,PLT 250 K/uL (150-400); RED BLOOD CELL COUNT 4.01 M/uL (4.50-5.90); WHITE BLOOD CELL COUNT,WBC 15.46 K/uL (4.0-11.0)
[2022-10-28 06:26] LABS: ALBUMIN 3.1 g/dL (3.4-5.0); BILIRUBIN TOTAL 0.6 mg/dL (0.2-1.0); CALCIUM 8.4 mg/dL (8.5-10.1); CARBON DIOXIDE,CO2 26.8 mmol/L (21.0-32.0); CREATININE 1.4 mg/dL (0.8-1.3); EST CRCL DRUG DOSING (CG) 46.53 mL/min; POTASSIUM,K 3.7 mmol/L (3.5-5.1); PROTEIN TOTAL,TP 6.3 g/dL (6.4-8.2)
[2022-10-28] MEDS: Lisinopril 10 MG Tab PO SCH (09:43)
[2022-10-28] MEDS: Apixaban 5 MG Tab PO SCH ×2 (09:44→21:18)
[2022-10-28] MEDS: Spironolactone 25 MG Tab PO SCH (09:44)
[2022-10-28] MEDS: Aspirin 81 MG Tab.Chew PO SCH (09:44)
[2022-10-28] MEDS: Carvedilol 25 MG Tab PO SCH ×2 (09:44→21:35)
[2022-10-28] MEDS: Multivitamin Tab PO SCH (09:44)
[2022-10-28] MEDS: Pantoprazole 40 MG Tab.CR PO SCH (09:44)
[2022-10-28] MEDS: ZINC 50 MG PO SCH (09:46)
[2022-10-28] MEDS: IRON 65 MG PO SCH (09:46)
[2022-10-28] MEDS ORDERED: Digoxin 500 MCG/2 ML Amp IVPUSH ONE ×2 (10:27→13:30)
[2022-10-28] MEDS: Furosemide 40 MG Tab PO SCH (10:41)
[2022-10-28] MEDS ORDERED: Amiodarone 200 MG Tab PO ONE (13:22)
[2022-10-28] MEDS: atorvaSTATin 40 MG Tab PO SCH (21:17)
[2022-10-28] MEDS: Amiodarone 200 MG Tab PO SCH (22:11)
[2022-10-29 05:58] LABS: BASOPHILS PERCENT AUTO 0.2 % (0.0-1.5); EOSINOPHILS ABSOLUTE AUTO 0.1 K/uL (0.0-0.7); EOSINOPHILS PERCENT AUTO 0.5 % (0.0-7.0); HEMATOCRIT 38.6 % (38.0-50.0); HEMOGLOBIN 12.9 g/dL (13.0-17.0); LYMPHOCYTES ABSOLUTE AUTO 1.8 K/uL (0.6-2.4); MEAN CORPUSCULAR HEMOGLOBIN 31.5 pg (27.0-32.0); MEAN CORPUSCULAR HGB CONC 33.4 g/dL (31.0-37.0); MEAN CORPUSCULAR VOLUME 94.4 fL (80.0-98.0); MONOCYTES ABSOLUTE AUTO 1.2 K/uL (0.0-0.8); MONOCYTES PERCENT AUTO 11.3 % (0.0-15.0); NEUTROPHILS ABSOLUTE AUTO 7.9 K/uL (1.4-5.7); NRBC ABSOLUTE 0 K/uL; PLATELET COUNT,PLT 226 K/uL (150-400); RED BLOOD CELL COUNT 4.09 M/uL (4.50-5.90); WHITE BLOOD CELL COUNT,WBC 10.91 K/uL (4.0-11.0)
[2022-10-29 06:38] LABS: A/G RATIO 0.9 (0.9-1.6); BILIRUBIN TOTAL 0.5 mg/dL (0.2-1.0); CALCIUM 8.1 mg/dL (8.5-10.1); CARBON DIOXIDE,CO2 29.4 mmol/L (21.0-32.0); CREATININE 1.4 mg/dL (0.8-1.3); EST CRCL DRUG DOSING (CG) 45.52 mL/min; POTASSIUM,K 3.6 mmol/L (3.5-5.1); PROTEIN TOTAL,TP 6.2 g/dL (6.4-8.2)
[2022-10-29] MEDS: Aspirin 81 MG Tab.Chew PO SCH (08:13)
[2022-10-29] MEDS: Pantoprazole 40 MG Tab.CR PO SCH (08:13)
[2022-10-29] MEDS: Multivitamin Tab PO SCH (08:13)
[2022-10-29] MEDS: Apixaban 5 MG Tab PO SCH (08:13)
[2022-10-29] MEDS: Spironolactone 25 MG Tab PO SCH (08:14)
[2022-10-29] MEDS: Carvedilol 25 MG Tab PO SCH (08:14)
[2022-10-29] MEDS: Furosemide 40 MG Tab PO SCH (08:14)
[2022-10-29] MEDS: Lisinopril 10 MG Tab PO SCH (08:15)
[2022-10-29] MEDS: Amiodarone 200 MG Tab PO SCH (08:15)
[2022-10-29] MEDS: ZINC 50 MG PO SCH (08:17)
[2022-10-29] MEDS: IRON 65 MG PO SCH (08:17)
[2022-10-29] MEDS ORDERED: Digoxin 500 MCG/2 ML Amp IVPUSH ONE ×2 (09:27→12:30)
[2022-10-29 16:33] VITALS: BP 167/82; PULSE 63
== END 2022-10-29 16:45 | disposition home or self-care (01) | DRG 194 ==
LOC: MW.ED 13:10 → MW.MS 18:26 → OBSVTOIN 10-28 10:52 → MW.MS 10-28 10:53
PROVIDERS: ADMIT Family Medicine; ATTEND Family Medicine
DX: I13.0 Hypertensive heart and chronic kidney disease with heart failure and stage 1 through stage 4 chronic kidney disease, or unspecified chronic kidney disease (principal); J96.01 Acute respiratory failure with hypoxia; J43.9 Emphysema, unspecified; I48.91 Unspecified atrial fibrillation; I50.9 Heart failure, unspecified; N18.2 Chronic kidney disease, stage 2 (mild); D63.1 Anemia in chronic kidney disease; E78.00 Pure hypercholesterolemia, unspecified; Z86.73 Personal history of transient ischemic attack (TIA), and cerebral infarction without residual deficits; Z79.82 Long term (current) use of aspirin; Z79.899 Other long term (current) drug therapy; Z87.891 Personal history of nicotine dependence; Z88.5 Allergy status to narcotic agent; Z88.0 Allergy status to penicillin; Z98.890 Other specified postprocedural states
CPT/HCPCS: 36415; 71045; 71045-26; 71275; 71275-26; 76770; 76770-26; 78472; 78472-26; 80053; 81003; 82803; 83605; 83735; 83880; 84484; 85025; 85379; 93005; 93010; 93306; 93976; 93976-26; 94640; 96361; 96365; 96375; 96376; 99284; 99285-25; A9270-GY; A9508; A9512; G0378; J1160; J1940; J2920; J2930; J3475; J7030; J7620-GY; Q9967; U0002

== ENCOUNTER 2024-08-02 12:39 | Emergency (ER) | payer BC, MEDICARE ==
[2024-08-02] MEDS: Sodium Chloride 0.9% 500 ML IV SCH (13:05)
[2024-08-02 13:09] LABS: BASOPHILS ABSOLUTE AUTO 0.15 K/uL (0.00-0.20); BASOPHILS PERCENT AUTO 1.3 % (0.0-1.0); EOSINOPHILS ABSOLUTE AUTO 0.81 K/uL (0.00-0.45); EOSINOPHILS PERCENT AUTO 7.2 % (0.0-6.0); HEMATOCRIT 39.7 % (42.0-52.0); HEMOGLOBIN 13.1 g/dL (14.0-18.0); IMMATURE GRAN ABSOLUTE AUTO 0.04 K/uL (0.00-0.05); IMMATURE GRAN PERCENT AUTO 0.4 % (0.0-0.4); LYMPHOCYTES ABSOLUTE AUTO 1.85 K/uL (1.00-4.80); LYMPHOCYTES PERCENT AUTO 16.4 % (24.0-44.0); MEAN CORPUSCULAR VOLUME 90.8 fL (83.0-99.0); MEAN PLATELET VOLUME 10.2 fL (9.4-12.4); MONOCYTES ABSOLUTE AUTO 0.88 K/uL (0.00-0.80); MONOCYTES PERCENT AUTO 7.8 % (0.0-8.0); NEUTROPHILS ABSOLUTE AUTO 7.53 K/uL (1.80-7.70); NEUTROPHILS PERCENT AUTO 66.9 % (41.0-71.0); PLATELET COUNT,PLT 225 K/uL (150-400); RED BLOOD CELL COUNT 4.37 M/uL (4.52-5.90); WHITE BLOOD CELL COUNT,WBC 11.26 K/uL (3.9-11.3)
[2024-08-02 13:19] LABS: APPEARANCE,URINE CLEAR; BILIRUBIN,URINE NEGATIVE (NEGATIVE); GLUCOSE,URINE NEGATIVE (NEGATIVE); KETONES,URINE NEGATIVE (NEGATIVE); LEUKOCYTE ESTERASE,URINE NEGATIVE (NEGATIVE); NITRITE,URINE NEGATIVE (NEGATIVE); OCCULT BLOOD,URINE NEGATIVE (NEGATIVE); PROTEIN,URINE 30 mg/dL (NEGATIVE); UROBILINOGEN,URINE 0.2 EU/dL (<2.0)
[2024-08-02 13:30] LABS: COLOR,URINE DARK YELLOW
[2024-08-02 13:33] LABS: BACTERIA,URINE FEW (NEGATIVE); EPITHELIAL CELLS,URINE OCCASIONAL (NONE-FEW); RBC,URINE 0-2 (0-2/HPF); WBC,URINE 0-4 (0-5/HPF)
[2024-08-02 13:39] LABS: ALBUMIN 3.2 g/dL (3.4-5.0); BILIRUBIN TOTAL 0.7 mg/dL (0.2-1.0); CALCIUM 8.8 mg/dL (8.5-10.1); CARBON DIOXIDE,CO2 32.2 mmol/L (21.0-32.0); CREATININE 2.3 mg/dL (0.8-1.3); EST CRCL DRUG DOSING (CG) 26.8 mL/min; POTASSIUM,K 5.2 mmol/L (3.5-5.1); PROTEIN TOTAL,TP 6.5 g/dL (6.4-8.2)
[2024-08-02] MEDS: Furosemide 40 MG/4 ML VIAL IVPUSH ONE (13:58)
[2024-08-02 16:05] VITALS: BP 97/64; PULSE 73
== END 2024-08-02 16:14 | disposition home or self-care (01) ==
LOC: MW.ED 12:39
DX: I95.1 Orthostatic hypotension (principal); I11.0 Hypertensive heart disease with heart failure; I50.9 Heart failure, unspecified; E86.0 Dehydration; J44.9 Chronic obstructive pulmonary disease, unspecified; Z88.0 Allergy status to penicillin; Z88.5 Allergy status to narcotic agent; Z79.82 Long term (current) use of aspirin; Z79.01 Long term (current) use of anticoagulants; Z79.51 Long term (current) use of inhaled steroids; Z79.899 Other long term (current) drug therapy; Z75.3 Unavailability and inaccessibility of health-care facilities
CPT/HCPCS: 36415; 70450; 70486; 71045; 80053; 81001; 83880; 84484; 85025; 93005; 96361; 96374; 99285; J1938; J7040; 93010; 99284